=== PATIENT | female | born 1955 | race Caucasian/White ===

== ENCOUNTER 2021-09-23 07:27 | Day surgery (SDC) | payer BC, SELFPAY ==
[2021-09-23] VITALS (18 sets, daily range): BP systolic 118–153; BP diastolic 60–81; PULSE 64–95; RESP 16–18; TEMP 36–37.4; O2SAT 94–100; BMI 39.3
--- NOTE | 2021-09-23 10:36 | CRLHL7_ITS ---
For Patients: As a result of the Century Cures Act, medical imaging exams and procedure reports are released immediately into your electronic medical record. You may view this report before your referring provider. If you have questions, please contact your health care provider. INDICATION: Intraop LUQ lap port placement in left chest, eval left PTX TECHNIQUE: Chest 1 view COMPARISON: None FINDINGS: Left apical pneumothorax is present measuring 1.5 cm. Left basilar parenchymal densities are present. A small left pleural effusion is suspected. Right lung relatively clear. Cardiac silhouette enlarged. Mild degenerative changes. IMPRESSION: Small left apical pneumothorax. Left basilar atelectasis and small left pleural effusion. Discussed with Dr. Álvarez 11 a.m. 09/23/2021. Dictated by Narendra Lee MD @ 09/23/2021 11:01:25 AM (Electronically Signed)
--- NOTE | 2021-09-23 10:42 | W.ANESCHARGE ---
Anesthesia Charges Start Date/Time Anesthesia Start Date: 09/23/21 Anesthesia Start Time: 09:01 Stop Date/Time Anesthesia Stop Date: 09/23/21 Anesthesia Stop Time: 10:38 Summary Emergency: No
--- NOTE | 2021-09-23 10:45 | W.ANESCHARGE ---
Anesthesia Charges Start Date/Time Anesthesia Start Date: 09/23/21 Anesthesia Start Time: 09:01 Stop Date/Time Anesthesia Stop Date: 09/23/21 Anesthesia Stop Time: 10:38 Summary Emergency: No
--- NOTE | 2021-09-23 11:33 | PM.GSPRC ---
Operative Note Date of procedure: 09/23/21 Type of Procedure: 1. Laparoscopic cholecystectomy. Procedure Description: After discussing the risks and benefits of the procedure, the patient signed informed consent.? The operative site was marked and the patient was brought to the operating room and placed on the operating table in supine position.? Care was taken to pad the patient's pressure points.?? The patient was then intubated by anesthesia.?? The operative site was then prepped and draped in the usual sterile fashion.? A time-out was then performed. A 5-mm laparoscopy port was placed in the left upper quadrant guided by a 5-mm laparoscope placed into a translucent trochar.~ Passage through the layers of the abdominal wall was visualized with the laparoscope.~ A pneumoperitoneum was established. However, at this moment I noticed that my port was in the left chest where I was able to visualize the left lung superiorly and pericardial sac medially. This port was then withdrawn with only minimal air was insufflated in the chest. The 5 mm Visiport was then placed through the same left upper quadrant incision and advanced into the abdomen. The abdomen was entered and pneumoperitoneum was established. A 0-degree 5-mm laparoscope was advanced into the abdomen. The abdomen was briefly surveyed, and omental adhesions to the umbilicus were noted. A 10-mm port were placed supraumbilically superior to the adhesions and two more 5 mm ports were placed on the right under direct visualization by laparoscope. The camera was then changed to 10 mm 30-degree scope and placed into the abdomen through the 10 mm port. The left upper quadrant port entrance was examined. No expanding hematoma was noted. No liver injury was identified. Patient's vital signs were stable and no change in vital signs was noted throughout the procedure. I then directed my attention to the right upper quadrant. A moderately-sized fatty appearing abdominal wall mass was laying on the surface of the liver. This mass was covered by peritoneum and had an appearance of lipoma. The mass was retracted and the gallbladder was then grasped. The gallbladder fundus was grasped and retracted cephalad. The infundibulum was grasped and retracted laterally, exposing the peritoneum overlying the triangle of Calot. This was then divided and exposed in a blunt fashion and with hook cautery. No acute inflammation was noted surrounding the gallbladder. Common bile duct was not identified but care was taken not to injure it. The cystic duct was clearly identified and bluntly dissected circumferentially. Cystic artery was very small and was going into the gallbladder. This was divided with hook cautery. The cystic duct were clearly going into the gallbladder and was small in caliber. The cystic duct was then doubly ligated with surgical clips on the patient's side and singly clipped on the gallbladder side and divided. The cystic artery was then similarly ligated with clips and divided as well. The gallbladder was dissected from the liver bed in retrograde fashion using hookcautery. The gallbladder was placed into an Endo-Catch bag and removed through the supraumbilical incision. Surgical site was examined for bleeding. No bleeding was seen in the surgical field. A small piece of peritoneum overlying the right upper quadrant abdominal wall mass was excised with Metzenbaum scissors. Under peritoneum fatty tissue was noted. This was again grossly consistent with lipoma. This small biopsy excised was sent to pathology as right upper quadrant abdominal wall mass. The fascia of the supraumbilical incision was then closed with 0-0 vicryl using Anuel Moraima needle under direct visualization. The fascial edges were very thin on palpation. Patient did have a history of umbilical hernia repair, and my fascial incision was just superior to what felt to be possible mesh. Pneumoperitoneum was completely reduced after viewing removal of the trocars under direct vision. The skin was then closed with 4-0 monocryl and steristrips were applied. Instrument, sponge, and needle counts were correct at closure and at the conclusion of the case. The patient was transferred to PACU in stable condition. ? Findings: No acute inflammation surrounding the gallbladder. The cystic duct was very small in caliber. The left upper quadrant Visiport was accidentally placed into the left chest. Minimal insufflation of the left chest was done. Patient's vital signs were stable throughout the whole procedure. Anesthesia: GETA Surgeon: Latanya Álvarez MD Estimated blood loss (mL): 5 Condition: stable Disposition: floor (Due to Visiport placement into the left chest.)
[2021-09-23 11:47] LABS: Troponin I* < 0.01 ng/mL (0.01-0.04)
--- NOTE | 2021-09-23 12:01 | PM.GSHP ---
History of Present Illness History of Present Illness Date Seen: 09/23/21 Chief complaint: surgery Narrative: Juli Nguyen is a 66 year old female who underwent laparoscopic cholecystectomy today. Intraoperatively patient's left upper quadrant port was placed into the left chest inside of the abdomen. The port was then withdrawn and only minimal air was inflated insufflated into the chest. Patient did well intraoperatively with stable vital signs. Patient's surgery otherwise went well. Postoperatively, patient complained of diffuse chest pain. A chest x-ray was obtained that showed a tiny apical left pneumothorax. There was left-sided basilar atelectasis as well. An EKG was done that showed T wave inversions in V1 and V2 which were similar to patient's EKG in September of 2020. Patient's troponin was normal. With pain control patient's pain was starting to improve. Review of Systems Narrative: General: no fevers HENT: no problems swallowing CV: Painful to take a deep breath Resp: no cough GI: + abdominal pain, s/p lap matthew Skin: no new rashes Musculoskeletal: Patient has chronic back pain Neuro: no muscle weakness PFSH PFSH Medical History (Updated 09/23/21 @ 12:12 by Latanya Álvarez MD) Acute pain of both shoulders Adenomatous colon polyp De Quervain's disease (tenosynovitis) Displacement of lumbar intervertebral disc without myelopathy Essential (primary) hypertension Gastroesophageal reflux disease with esophagitis Iron deficiency anemia, unspecified Major depressive disorder, recurrent, unspecified Onychomycosis Pneumonia, unspecified organism Prediabetes Type 2 diabetes mellitus with unspecified complications Urgency of urination Vitamin D deficiency, unspecified Surgical History (Updated 09/23/21 @ 12:07 by Latanya Álvarez MD) H/O left knee surgery History of bladder suspension procedure History of umbilical hernia repair Social History (Updated 09/23/21 @ 12:08 by Latanya Álvarez MD) Narrative: Patient denies smoking. She works as a teacher. Meds Home Medications and Allergies Home Medications Medication Instructions Recorded Confirmed Type albuterol 90 mcg/actuation aerosol 90 mcg inhalation Q4H PRN 08/19/21 History inhaler atenolol 25 mg tablet 25 mg PO DAILY 08/19/21 History bupropion HCl 150 mg tablet,12 hr 150 mg PO QAM 08/19/21 History sustained-release (Wellbutrin SR) cholecalciferol (vitamin D3) 125 125 mcg PO DAILY 08/19/21 History mcg (5,000 unit) capsule ferrous sulfate 325 mg (65 mg 325 mg PO DAILY 08/19/21 History iron) tablet fluticasone propionate 50 2 spray intranasal DAILY PRN 08/19/21 History mcg/actuation nasal spray,suspension hydroxyzine HCl 25 mg tablet 25 mg PO Q6H PRN 08/19/21 History ipratropium 0.5 mg-albuterol 3 mg 3 ml inhalation QID PRN 08/19/21 History (2.5 mg base)/3 mL nebulization soln melatonin 3 mg capsule 3 mg PO HS PRN 08/19/21 History meloxicam 15 mg tablet 7.5 mg PO BID 08/19/21 History multivitamin 1 tab PO DAILY 08/19/21 History omeprazole 20 mg capsule,delayed 20 mg PO DAILY 08/19/21 History release trazodone 50 mg tablet 50 - 100 mg PO HS 08/19/21 History Allergies Allergy/AdvReac Type Severity Reaction Status Date / Time lisinopril Allergy Cough Verified 09/13/21 11:06 Sulfa (Sulfonamide Allergy Verified 09/13/21 11:06 Antibiotics) terbinafine Allergy Verified 09/13/21 11:06 Exam Narrative: Exam Narrative: General appearance: Alert, cooperative, and in no distress Pulmonary: Chest symmetric, breathing non labored Cardiovascular Heart: Regular rate and rhythm. Gastrointestinal Abdominal: soft, not distended, Steries over laparoscopic incisions. Skin: Normal skin color, texture, and turgor. No rashes or lesions. Psychiatric: Alert, cooperative, normal affect. Results Results Chest x-ray: image reviewed EKG: image reviewed Additional studies: Troponin normal Assessment and Plan Assessment and plan (1) Chest pain: Status: Acute (2) Pneumothorax, left: Status: Acute Plan 66-year-old female s/p laparoscopic cholecystectomy with intraoperative complication of this a port placement did into the left chest. Patient has postoperative chest pain. This is most likely musculoskeletal in nature due to injury to the diaphragmatic muscle. Her chest x-ray showed a tiny apical left pneumothorax with atelectasis. Her EKG is unchanged from a year ago. Her troponin is normal. We will observe the patient in the hospital. We will repeat her troponin in 4 hours and repeat her chest x-ray in 5 hours as long as there are no acute changes. Will keep the patient on clear liquid diet. I have asked the hospitalist to see this patient in consultation and review of EKG.
--- NOTE | 2021-09-23 14:29 | PM.IMCN1 ---
Date of Consult Consult date: 09/23/21 Requesting Physician: General Surgery Primary Care Provider: Randi Umana PA-C Consult Narrative Reason for consult: Left-sided chest pain Narrative: Juli Nguyen is a 66 year old female who presented to the hospital today for elective cholecystectomy with Dr. Álvarez. Unfortunately, her surgery had been delayed from earlier this month secondary to COVID infection. Postoperatively, she had left-sided chest pain that radiated into her back. Chest x-ray was obtained, exhibiting a small left apical pneumothorax and left-sided atelectasis. EKG also obtained without any acute abnormalities, and troponin was negative. Hospitalist team consulted given patient's chest pain. When I see take Juli, she is feeling better. Her pain is significantly improved, and she is sitting up in bed conversing. Her past medical history is significant for non insulin-dependent DM2. Her last A1c was 6.4 in July 2021. Last lipids April of 2021, with a total cholesterol of 214, LDL of 135, triglycerides 127. She has never been on a statin. ASCVD risk score is 13.2%. She is a former smoker and quit in 2004. No chronic lung disease, but was quite ill with RSV pneumonia last year. She very rarely drinks alcohol. Father at age 52 of acute coronary syndrome. Review of Systems Status of ROS: Reports: 10 or more systems reviewed and unremarkable except as noted in History and below PFSH [facility] Medical History (Updated 09/23/21 @ 15:32 by Diane Priest MD) Acute pain of both shoulders Adenomatous colon polyp De Quervain's disease (tenosynovitis) Displacement of lumbar intervertebral disc without myelopathy Essential (primary) hypertension Gastroesophageal reflux disease with esophagitis Insomnia Iron deficiency anemia, unspecified Major depressive disorder, recurrent, unspecified Onychomycosis Pneumonia, unspecified organism Prediabetes Type 2 diabetes mellitus with unspecified complications Urgency of urination Vitamin D deficiency, unspecified Surgical History (Updated 09/23/21 @ 12:07 by Latanya Álvarez MD) H/O left knee surgery History of bladder suspension procedure History of umbilical hernia repair Social History (Updated 09/23/21 @ 12:08 by Latanya Álvarez MD) Narrative: Patient denies smoking. She works as a teacher. Smoking Status: Never smoker How often do you have a drink containing alcohol: monthly or less Alcohol type: wine How often do you have six or more drinks on one occasion: Never AUDIT-C Alcohol total score: 1 Caffeine: Yes (coffee) service: No Meds Home Medications and Allergies Home Medications Medication Instructions Recorded Confirmed Type atenolol 25 mg tablet 25 mg PO DAILY 08/19/21 09/23/21 History bupropion HCl 150 mg tablet,12 hr 150 mg PO QAM 08/19/21 09/23/21 History sustained-release (Wellbutrin SR) cholecalciferol (vitamin D3) 125 125 mcg PO DAILY 08/19/21 09/23/21 History mcg (5,000 unit) capsule ferrous sulfate 325 mg (65 mg 325 mg PO DAILY 08/19/21 09/23/21 History iron) tablet fluticasone propionate 50 2 spray intranasal DAILY PRN 08/19/21 09/23/21 History mcg/actuation nasal spray,suspension hydroxyzine HCl 25 mg tablet 25 mg PO Q6H PRN 08/19/21 09/23/21 History melatonin 3 mg capsule 3 mg PO HS PRN 08/19/21 09/23/21 History meloxicam 15 mg tablet 7.5 mg PO BID 08/19/21 09/23/21 History multivitamin 1 tab PO DAILY 08/19/21 09/23/21 History omeprazole 20 mg capsule,delayed 20 mg PO DAILY 08/19/21 09/23/21 History release trazodone 50 mg tablet 50 - 100 mg PO HS 08/19/21 09/23/21 History Home Medication Comments: Confirmed with patient. She has been holding her meloxicam for surgery, plans to restart this tomorrow. Allergies Allergy/AdvReac Type Severity Reaction Status Date / Time lisinopril Allergy Cough Verified 09/13/21 11:06 Sulfa (Sulfonamide Allergy Verified 09/13/21 11:06 Antibiotics) terbinafine Allergy Verified 09/13/21 11:06 Exam Narrative: Exam Narrative: GEN: Alert and oriented, answering questions appropriately and speaking in full sentences HEENT: Normal external ears, EOMIs bilaterally. Full range of motion of neck CV: RRR, No concerning murmurs, rubs, or gallops. No carotid bruits R: No tachypnea. LCTA bilaterally without concerning wheezing, rales, or rhonchi Ext: wwp, no concerning edema Skin: No concerning skin lesions or rashes on exposed skin Neuro: Nonfocal, no resting tremor Psych: Appropriate Const: Vital Signs, click to edit/add: Vital Signs - 24 hr 09/23/21 11:50 09/23/21 13:24 09/23/21 12:00 Temperature 96.8 F L 96.8 F L 96.8 F L Pulse Rate 74 Pulse Rate [Left P ulse Oximeter] 74 80 Respiratory Rate 16 16 18 Blood Pressure [Ri ght Arm] 144/81 H 144/81 H 153/70 H Pulse Oximetry 100 96 Oxygen Delivery Me thod Room Air Room Air Room Air 09/23/21 12:15 09/23/21 12:30 09/23/21 12:45 Temperature 97.7 F 98 F 98 F Pulse Rate Pulse Rate [Left P ulse Oximeter] 64 79 81 Respiratory Rate 16 16 16 Blood Pressure [Ri ght Arm] 146/69 H 142/60 H 118/66 Pulse Oximetry 95 94 95 Oxygen Delivery Me thod Room Air Room Air Room Air 09/23/21 13:00 Temperature 98.2 F Pulse Rate Pulse Rate [Left P ulse Oximeter] 84 Respiratory Rate 16 Blood Pressure [Ri ght Arm] 121/64 Pulse Oximetry 95 Oxygen Delivery Me thod Room Air Labs Labs: Cardiac Enzymes 09/23/21 Range/Units 11:11 Troponin I < 0.01 L (0.01-0.04) ng/mL ECG Attestation: I personally reviewed and interpreted this ECG as follows: Prior ECG tracings: available for review Assessment and Plan Assessment and plan (1) Pneumothorax, left: Status: Acute (2) Chest pain: Status: Acute (3) Non-insulin dependent diabetes mellitus: Status: Acute (4) Essential (primary) hypertension: Status: Acute (5) Insomnia: Problem comment: Continue home medications of melatonin and trazodone Status: Acute Plan At this time, chest pain consistent with a musculoskeletal process from diaphragmatic injury, in addition to left-sided pneumothorax, rather than a cardiac process. Will follow serial chest x-rays and troponins, anticipate that patient will be able to go home tomorrow with outpatient PCP follow-up. Continue home medications and Accu-Cheks during stay.
[2021-09-23] MEDS: ACETAMINOPHEN 325 MG TABLET 650 MG PO ×2 (15:39→21:11)
--- NOTE | 2021-09-23 16:00 | CRLHL7_ITS ---
For Patients: As a result of the Century Cures Act, medical imaging exams and procedure reports are released immediately into your electronic medical record. You may view this report before your referring provider. If you have questions, please contact your health care provider. INDICATION: Left apical pneumothorax. TECHNIQUE: Chest 1 views. COMPARISON: None. FINDINGS/impression: Cardiovascular and mediastinum: Heart size and vasculature are normal in caliber and appearance. Lungs and pleural spaces: Previously visualized left apical pneumothorax is no longer visualized on the current radiograph. However, portable chest radiograph has limited sensitivity. If there is persistent concern for pneumothorax, consider repeat evaluation with PA and lateral chest radiographs. Improved left basilar atelectasis. Bones and soft tissues: No significant findings. Dictated by Pauline Mayorga MD @ 09/23/2021 4:56:49 PM (Electronically Signed)
--- NOTE | 2021-09-23 17:50 | PC.NURSE ---
Shift Summary: Patient arrived to floor 1150. Alert and oriented. at bedside. Rates pain at worst 5/10 in chest, pain in abdomen tolerable. Refused norco, wants to try tylenol first. Up independently in room. Dressing over umbilicus reenforced, dry and intact. Patient voiding, tolerating regular diet. Vitals stable and WNL.
--- NOTE | 2021-09-23 18:02 | PM.GSPN ---
Subjective Subjective Date Seen: 09/23/21 Interval history: Patient is doing better. She continues to have left chest pain with taking deep breaths. Her EKG was repeated and remains normal. Her repeat chest x-ray shows resolution of left pneumothorax and her left atelectasis has improved. Her second troponin is pending. Exam Narrative: Exam Narrative: General: Patient is appearing well. Respiratory: Breathing is nonlabored. Const: Vital Signs, click to edit/add: Vital Signs - 24 hr 09/23/21 11:50 09/23/21 13:24 09/23/21 12:00 Temperature 96.8 F L 96.8 F L 96.8 F L Pulse Rate 74 Pulse Rate [Left P ulse Oximeter] 74 80 Respiratory Rate 16 16 18 Blood Pressure [Ri ght Arm] 144/81 H 144/81 H 153/70 H Pulse Oximetry 100 96 Oxygen Delivery Me thod Room Air Room Air Room Air 09/23/21 12:15 09/23/21 12:30 09/23/21 12:45 Temperature 97.7 F 98 F 98 F Pulse Rate Pulse Rate [Left P ulse Oximeter] 64 79 81 Respiratory Rate 16 16 16 Blood Pressure [Ri ght Arm] 146/69 H 142/60 H 118/66 Pulse Oximetry 95 94 95 Oxygen Delivery Me thod Room Air Room Air Room Air 09/23/21 13:00 09/23/21 13:30 09/23/21 14:35 Temperature 98.2 F 98.1 F 97.8 F Pulse Rate Pulse Rate [Left P ulse Oximeter] 84 87 95 Respiratory Rate 16 16 18 Blood Pressure [Ri ght Arm] 121/64 144/64 H 145/76 H Pulse Oximetry 95 96 96 Oxygen Delivery Me thod Room Air Room Air Room Air 09/23/21 16:08 09/23/21 15:35 09/23/21 16:20 Temperature 99 F 99 F Pulse Rate 84 Pulse Rate [Left P ulse Oximeter] 86 86 Respiratory Rate 18 18 Blood Pressure [Ri ght Arm] 139/72 139/72 Pulse Oximetry 97 97 Oxygen Delivery Me thod Room Air Room Air Progress Note: A&P Assessment and plan (1) Pneumothorax, left: Status: Acute Assessment and Plan: Patient is doing well. Will continue observing her. If her troponin is normal and she continues to do well, most likely discharge home tomorrow. (2) Chest pain: Status: Acute (3) Non-insulin dependent diabetes mellitus: Status: Acute (4) Essential (primary) hypertension: Status: Acute (5) Insomnia: Problem details: Continue home medications of melatonin and trazodone Status: Acute
[2021-09-23 18:09] LABS: Troponin I* < 0.01 ng/mL (0.01-0.04)
[2021-09-23] MEDS: TRAZODONE HCL 50 MG TABLET PO (21:11)
[2021-09-23] MEDS: hydrOXYzine pamoate 25 MG CAPSULE PO (21:11)
[2021-09-24] VITALS: BP 130/64; PULSE 82; RESP 18; TEMP 37.4; O2SAT 97
[2021-09-24 04:00] VITALS: BP 139/68; PULSE 68; RESP 18; TEMP 36.8; O2SAT 95
--- NOTE | 2021-09-24 05:42 | PC.NURSE ---
Alert and orientedx4. Lungs clear bilaterally. Vitals stable on room air.Continues to have abd pain; taking Tylenol for pain management. sinus rhythm on tele. Bedtime Blood glucose 207; no insulin coverage. Laparascopic site CDI. patient ambulated in the room with standby assist. No concerns overnight.
[2021-09-24 06:58] LABS: Chloride* 103 mmol/L (96-114); Potassium* 4.3 mmol/L (3.6-5.1); Sodium* 137 mmol/L (135-149)
--- NOTE | 2021-09-24 07:00 | CRLHL7_ITS ---
For Patients: As a result of the Century Cures Act, medical imaging exams and procedure reports are released immediately into your electronic medical record. You may view this report before your referring provider. If you have questions, please contact your health care provider. INDICATION: Follow-up pneumothorax. TECHNIQUE: Chest 1 view. COMPARISON: Chest radiograph 09/23/2021. FINDINGS: No focal consolidation, pleural effusion, or pneumothorax. Mild cardiomegaly. Normal pulmonary vascularity. The bones are unremarkable. IMPRESSION: 1. No pneumothorax identified. 2. Mild cardiomegaly. Dictated by Jannette Huff MD @ 09/24/2021 8:25:49 AM (Electronically Signed)
[2021-09-24 07:01] LABS: Carbon Dioxide* 30 mmol/L (20-32); Creatinine* 0.6 mg/dL (0.5-1.5); Est. Creatinine Clearance* 47.01; Estimated Glomerular Filt Rate 100 ml/min
[2021-09-24 07:02] LABS: Blood Urea Nitrogen* 15 mg/dL (7-30); Calcium* 9.1 mg/dL (8.4-10.6); Glucose* 162 mg/dL (60-115)
[2021-09-24 07:14] LABS: Troponin I* < 0.01 ng/mL (0.01-0.04)
[2021-09-24] MEDS: OMEPRAZOLE 20 MG CAPSULE DR PO (07:20)
[2021-09-24 07:30] VITALS: PULSE 79
--- NOTE | 2021-09-24 07:41 | PM.DS1 ---
DS: Providers Provider Date Seen: 09/24/21 Primary care physician: Randi Umana PA-C Attending Physician on discharge: Latanya Álvarez MD DS: Diagnosis Discharge Diagnosis (1) Pneumothorax, left: Status: Acute Problem details: Resolved (2) Chest pain: Status: Acute Problem details: Improved (3) Non-insulin dependent diabetes mellitus: Status: Acute (4) Essential (primary) hypertension: Status: Acute (5) Insomnia: Status: Acute Problem details: Continue home medications of melatonin and trazodone DS: Summary Hospital Course Hospital Course: Patient was admitted to the hospital after laparoscopic cholecystectomy due to 1 of her laparoscopic ports being placed in the chest instead of the abdomen. Patient had a small apical pneumothorax on postoperative chest x-ray. That improved on the follow-up chest x-ray 5 hours after the initial chest x-ray. Patient's chest pain has been evaluated by 2 EKGs which were unchanged from her previous EKG 1 year ago. Patient had 2- troponins. Patient's chest pain was improving the day after the procedure. Patient tolerated regular diet and was urinating without any difficulties. Time Spent with Patient Time attestation: Total time spent providing and/or coordinating discharge services: Exam Narrative: Exam Narrative: Abdomen: Soft, not distended, not tender to palpation, surgical incisions are healing well with no erythema. Const: Vital Signs, click to edit/add: Vital Signs - 24 hr 09/23/21 11:50 09/23/21 13:24 09/23/21 12:00 Temperature 96.8 F L 96.8 F L 96.8 F L Pulse Rate 74 Pulse Rate [Left P ulse Oximeter] 74 80 Respiratory Rate 16 16 18 Blood Pressure [Ri ght Arm] 144/81 H 144/81 H 153/70 H Pulse Oximetry 100 96 Oxygen Delivery Me thod Room Air Room Air Room Air 09/23/21 12:15 09/23/21 12:30 09/23/21 12:45 Temperature 97.7 F 98 F 98 F Pulse Rate Pulse Rate [Left P ulse Oximeter] 64 79 81 Respiratory Rate 16 16 16 Blood Pressure [Ri ght Arm] 146/69 H 142/60 H 118/66 Pulse Oximetry 95 94 95 Oxygen Delivery Me thod Room Air Room Air Room Air 09/23/21 13:00 09/23/21 13:30 08/01/22 14:35 Temperature 98.2 F 98.1 F 97.8 F Pulse Rate Pulse Rate [Left P ulse Oximeter] 84 87 95 Respiratory Rate 16 16 18 Blood Pressure [Ri ght Arm] 121/64 144/64 H 145/76 H Pulse Oximetry 95 96 96 Oxygen Delivery Me thod Room Air Room Air Room Air 09/23/21 16:08 09/23/21 15:35 09/23/21 16:20 Temperature 99 F 99 F Pulse Rate 84 Pulse Rate [Left P ulse Oximeter] 86 86 Respiratory Rate 18 18 Blood Pressure [Ri ght Arm] 139/72 139/72 Pulse Oximetry 97 97 Oxygen Delivery Me thod Room Air Room Air 09/23/21 20:00 09/23/21 22:31 09/23/21 22:33 Temperature 99.3 F Pulse Rate 84 Pulse Rate [Left P ulse Oximeter] 82 82 Respiratory Rate 18 18 Blood Pressure [Ri ght Arm] 134/66 Pulse Oximetry 97 Oxygen Delivery Wy thod Room Air 09/23/21 22:42 09/24/21 00:00 09/24/21 04:00 Temperature 99.4 F 99.4 F 98.2 F Pulse Rate Pulse Rate [Left P ulse Oximeter] 82 68 Respiratory Rate 18 18 Blood Pressure [Ri ght Arm] 130/64 139/68 Pulse Oximetry 97 95 Oxygen Delivery Wy thod Room Air Room Air 09/23/21 16:35 09/24/21 07:30 Temperature 99 F Pulse Rate 79 Pulse Rate [Left P ulse Oximeter] 82 Respiratory Rate 16 Blood Pressure [Ri ght Arm] 129/63 Pulse Oximetry Oxygen Delivery Me thod Room Air DS: Data Data Completed and Pending Labs on day of discharge: Labs from last 24 hours 09/24/21 09/23/21 09/23/21 05:52 17:28 11:11 Sodium 137 Potassium 4.3 Chloride 103 Carbon Dioxide 30 BUN 15 Creatinine 0.6 Estimated Creat Clear 47.01 Estimated GFR 100 Glucose 162 H Calcium 9.1 Troponin I < 0.01 L < 0.01 L < 0.01 L Surg PTH (Off-Site) 09/23/21 10:16 Sodium Potassium Chloride Carbon Dioxide BUN Creatinine Estimated Creat Clear Estimated GFR Glucose Calcium Troponin I Surg PTH (Off-Site) Pending Discharge Plan Discharge Disposition: Home, Self-Care Discharging Surgeon: Latanya Álvarez Follow-Up Appointment: 2 weeks [facility] Prescriptions: New hydrocodone-acetaminophen 5-325 mg tablet 1 tab PO Q6H PRN (Reason: pain) Qty: 25 0RF Continued atenolol 25 mg tablet 25 mg PO DAILY bupropion HCl [Wellbutrin SR] 150 mg tablet sustained-release 12 hr 150 mg PO QAM cholecalciferol (vitamin D3) 125 mcg (5,000 unit) capsule 125 mcg PO DAILY ferrous sulfate 325 mg (65 mg iron) tablet 325 mg PO DAILY fluticasone propionate 50 mcg/actuation spray,suspension 2 spray intranasal DAILY PRN Rx Instructions: administer into each nostril hydroxyzine HCl 25 mg tablet 25 mg PO Q6H PRN melatonin 3 mg capsule 3 mg PO HS PRN meloxicam 15 mg tablet 7.5 mg PO BID multivitamin Tablet 1 tab PO DAILY omeprazole 20 mg capsule,delayed release(DR/EC) 20 mg PO DAILY trazodone 50 mg tablet 50 - 100 mg PO HS Activity Level: No strenuous activity Discharge Diet: Regular Patient Instructions: Hydrocodone/Acetaminophen (By mouth) (Vicodin, [place], Lortab), Laparoscopic Cholecystectomy (DC) Follow-up: Latanya Álvarez MD [Staff Physician] - Discharge Orders: Discharge Order (Routine); Ordered 09/24/21 Ordered By: Latanya Álvarez
[2021-09-24 08:11] VITALS: BP 147/70; PULSE 68; RESP 16; TEMP 37; O2SAT 94
[2021-09-24] MEDS: atenoloL 25 MG TABLET PO (08:26)
[2021-09-24] MEDS: buPROPion XL 150 MG TABLET PO (08:27)
[2021-09-24] MEDS: ACETAMINOPHEN 325 MG TABLET 650 MG PO (08:29)
--- NOTE | 2021-09-24 09:55 | PC.NURSE ---
Discharge: Patient pleasant and cooperative. Up independently, tolerating regular diet, able to perform ADLs. Vitals stable and WNL. Pain controlled wiht PRN tylenol and ice over abdomen. IV removed with catheter intact. o2 sats >90% on RA. Lap sites dry with steri strips intact. Patient discharged from floor @ 0945 via wheelchair, discharged home, picked up from main entrance.
--- NOTE | 2021-09-24 11:11 | PM.IMPN1 ---
Progress Note: A&P Assessment and plan (1) Pneumothorax, left: Problem details: Resolved Status: Acute Assessment and Plan: no further intervention needed (2) Chest pain: Problem details: Improved Status: Acute Assessment and Plan: resolved with resolution of pneumothorax (3) Non-insulin dependent diabetes mellitus: Status: Acute Assessment and Plan: resume home management (4) History of cholecystectomy: Status: Acute Assessment and Plan: doing well Plan discharged to home per surgeon. Outpatient followup per surgery Subjective Date Seen: 09/24/21 Interval history: 66-year-old female seen in followup of laparoscopic cholecystectomy complicated by left pneumothorax. Patient reports feeling much better today. The left shoulder pain that she had yesterday has resolved. She still is having some expected abdominal discomfort post cholecystectomy. She reports no breathing troubles. She has been able to eat today. She has no other concerns. Exam Narrative: Exam Narrative: She is alert appears in no distress. She gives her own history. Respirations are clear to auscultation. Symmetric breath sounds. Cardiovascular: S1, S2, regular rate and rhythm. No murmur gallop or rub. Abdomen: Laparoscopic incisions are without erythema or drainage. She has mild diffuse tenderness in the upper abdomen consistent with her cholecystectomy status. No edema. Good peripheral pulses. Const: Vital Signs, click to edit/add: Vital Signs - 24 hr 09/23/21 11:50 09/23/21 13:24 09/23/21 12:00 Temperature 96.8 F L 96.8 F L 96.8 F L Pulse Rate 74 Pulse Rate [Left P ulse Oximeter] 74 80 Respiratory Rate 16 16 18 Blood Pressure [Ri ght Arm] 144/81 H 144/81 H 153/70 H Pulse Oximetry 100 96 Oxygen Delivery Me thod Room Air Room Air Room Air 09/23/21 12:15 09/23/21 12:30 09/23/21 12:45 Temperature 97.7 F 98 F 98 F Pulse Rate Pulse Rate [Left P ulse Oximeter] 64 79 81 Respiratory Rate 16 16 16 Blood Pressure [Ri ght Arm] 146/69 H 142/60 H 118/66 Pulse Oximetry 95 94 95 Oxygen Delivery Me thod Room Air Room Air Room Air 09/23/21 13:00 09/23/21 13:30 09/23/21 14:35 Temperature 98.2 F 98.1 F 97.8 F Pulse Rate Pulse Rate [Left P ulse Oximeter] 84 87 95 Respiratory Rate 16 16 18 Blood Pressure [Ri ght Arm] 121/64 144/64 H 145/76 H Pulse Oximetry 95 96 96 Oxygen Delivery Me thod Room Air Room Air Room Air 09/23/21 16:08 09/23/21 15:35 09/23/21 16:20 Temperature 99 F 99 F Pulse Rate 84 Pulse Rate [Left P ulse Oximeter] 86 86 Respiratory Rate 18 18 Blood Pressure [Ri ght Arm] 139/72 139/72 Pulse Oximetry 97 97 Oxygen Delivery Me thod Room Air Room Air 09/23/21 20:00 09/23/21 22:31 09/23/21 22:33 Temperature 99.3 F Pulse Rate 84 Pulse Rate [Left P ulse Oximeter] 82 82 Respiratory Rate 18 18 Blood Pressure [Ri ght Arm] 134/66 Pulse Oximetry 97 Oxygen Delivery Me thod Room Air 09/23/21 22:42 09/24/21 00:00 09/24/21 04:00 Temperature 99.4 F 99.4 F 98.2 F Pulse Rate Pulse Rate [Left P ulse Oximeter] 82 68 Respiratory Rate 18 18 Blood Pressure [Ri ght Arm] 130/64 139/68 Pulse Oximetry 97 95 Oxygen Delivery Me thod Room Air Room Air 09/23/21 16:35 09/24/21 07:30 09/24/21 08:11 Temperature 99 F 98.6 F Pulse Rate 79 Pulse Rate [Left P ulse Oximeter] 82 68 Respiratory Rate 16 16 Blood Pressure [Ri ght Arm] 129/63 147/70 H Pulse Oximetry 94 Oxygen Delivery Me thod Room Air Room Air Documenting provider has reviewed patient's vital signs: yes Labs Labs: Laboratory Results - last 24 hr 09/23/21 09/23/21 09/24/21 11:11 17:28 05:52 Sodium 137 Potassium 4.3 Chloride 103 Carbon Dioxide 30 BUN 15 Creatinine 0.6 Estimated Creat Clear 47.01 Estimated GFR 100 Glucose 162 H Calcium 9.1 Troponin I < 0.01 L < 0.01 L < 0.01 L
--- NOTE | 2021-10-03 16:19 | SUR.PHASEI ---
Phase 1 times completed by this nurse based on documents scanned into chart. Expanse downtime. Needed to close document for billing.
== END 2021-09-24 09:45 | disposition home or self-care (01) ==
LOC: OR 08:59 → MEDSURG 12:02
PROVIDERS: Family Medicine; PCP Physician Assistant Medical; Visit Provider Surgery
PROC: 0FT44ZZ Resection of Gallbladder, Percutaneous Endoscopic Approach (ICD-10-PCS; CPT 47562; principal; 2021-09-23 09:00)
DX: K80.10 Calculus of gallbladder with chronic cholecystitis without obstruction (principal); D17.1 Benign lipomatous neoplasm of skin and subcutaneous tissue of trunk; J95.811 Postprocedural pneumothorax; J95.89 Other postprocedural complications and disorders of respiratory system, not elsewhere classified; J98.11 Atelectasis; R07.9 Chest pain, unspecified; E11.9 Type 2 diabetes mellitus without complications; I10 Essential (primary) hypertension; G47.00 Insomnia, unspecified
CPT/HCPCS: 47562; 22902; 00790; 00860; 36415; 71045; 80048; 82947; 84484; 88304; 88305; 93005; G0378; A9270; J1100; J2250; J2405; J2704; J2710; J3010

== ENCOUNTER 2021-09-26 16:30 | Inpatient (IN) | payer BC, SELFPAY ==
[2021-09-26] VITALS (12 sets, daily range): BP systolic 136–151; BP diastolic 66–92; PULSE 85–97; RESP 16–33; TEMP 36.9–38.9; O2SAT 89–97; BMI 39.9; BMI 44.6
[2021-09-26 17:32] LABS: Appearance Urine Clear (Clear); Bilirubin Urine Negative (Negative); Blood Urine Negative (Negative); Color Urine Yellow (Yellow); Glucose Urine Negative (Negative); Ketones Urine Negative (Negative); Leukocyte Esterase Urine Negative (Negative); Nitrite Urine Negative (Negative); Protein Urine Negative (Negative); Urobilinogen Urine 0.2 (0.2-1.0); pH Urine 8.5 (5.0-8.5)
[2021-09-26 18:00] LABS: HCO3 VBG 28 mmol/L (21-28); PCO2 VBG 43 mmHG (40-50); PO2 VBG 32.1 mmHG (25-47); pH VBG 7.428 (7.32-7.43)
[2021-09-26 18:08] LABS: Basophils Absolute Auto 0.03 K/uL (0.00-0.30); Basophils Percent Auto 0.4 % (0.0-3.0); Eosinophils Absolute Auto 0.12 K/uL (0.00-0.50); Eosinophils Percent Auto 1.6 % (0.0-7.0); Hematocrit 40.2 % (33.0-51.0); Hemoglobin* 13.4 gm/dL (12.0-16.0); Immature Granulocytes Abs Auto 0.06 K/uL (0.00-0.30); Lactate* 1.4 mmol/L (0.5-1.9); Lymphocytes Percent Auto 6.7 % (20-44); Mean Corpuscular HGB Conc 33 gm/dL (32-36); Mean Corpuscular Hemoglobin 30 pg (26-34); Mean Corpuscular Volume 90 fL (80-100); Monocytes Percent Auto 7.1 % (0.0-11.0); Neutrophils Percent Auto 83.4 % (42.0-72.0); Platelet Count* 187 K/uL (140-440); RDW Coefficient of Variation % 12.8 % (11.5-15.5); Red Blood Count 4.49 m/uL (4.00-5.20)
[2021-09-26 18:09] LABS: Slide Review Reflex No
[2021-09-26 18:20] LABS: Albumin* 4.2 g/dL (3.3-5.0); Chloride* 100 mmol/L (96-114)
[2021-09-26 18:21] LABS: Potassium* 3.9 mmol/L (3.6-5.1); Sodium* 133 mmol/L (135-149)
[2021-09-26 18:23] LABS: Creatinine* 0.7 mg/dL (0.5-1.5); Est. Creatinine Clearance* 47.01; Estimated Glomerular Filt Rate 97 ml/min
[2021-09-26 18:24] LABS: Alanine Aminotransferase* 60 U/L (4-35); Alkaline Phosphatase* 134 U/L (40-150); Aspartate Amino Transferase* 56 U/L (12-35); Bilirubin Direct* 0.2 mg/dL (0.0-0.5); Bilirubin Total* 0.5 mg/dL (0.1-1.5); Blood Urea Nitrogen* 15 mg/dL (7-30); Calcium* 8.9 mg/dL (8.4-10.6); Carbon Dioxide* 27 mmol/L (20-32); Glucose* 153 mg/dL (60-115); Lipase* 44 U/L (23-300); Total Protein* 7.1 g/dL (6.0-8.3)
[2021-09-26 18:27] LABS: C Reactive Protein* 2.4 mg/dL (0.5-1.0)
[2021-09-26 18:39] LABS: Troponin I* < 0.01 ng/mL (0.01-0.04)
--- NOTE | 2021-09-26 18:50 | CRLHL7_ITS ---
For Patients: As a result of the Century Cures Act, medical imaging exams and procedure reports are released immediately into your electronic medical record. You may view this report before your referring provider. If you have questions, please contact your health care provider. INDICATION: post op cholecystectomy (09/23/2021), fever TECHNIQUE: CT chest PE, abdomen and pelvis acquired with 95cc Omnipaque 350 IV contrast. COMPARISON: None. FINDINGS: CHEST: Cardiovascular structures: Heart size is normal. Thoracic aorta and main pulmonary artery are normal in caliber. No sign of pulmonary embolism. Mediastinum and faith: Mildly prominent subcentimeter mediastinal lymph nodes which are nonspecific and may be reactive. Lungs and pleura: Lungs and pleural spaces are clear. No suspicious nodules, infiltrates, or effusions. Chest wall and axilla: No mass or adenopathy. Bones: No suspicious bone lesions. Unremarkable for age. ABDOMEN AND PELVIS: Liver: Unremarkable. Gallbladder and bile ducts: The gallbladder surgically absent. Small amount of stranding extending adjacent to the gallbladder fossa down to the right pericolic gutter which may be postoperative. No organizing fluid collection. The gallbladder surgically absent. Pancreas: Moderate parenchymal atrophy. Spleen: Unremarkable. Adrenal glands: Unremarkable. Kidneys: Subcentimeter bilateral hypoattenuating lesions too small to characterize. Kidneys are symmetric. No hydronephrosis. Small amount of air within the bladder. GI tract: No evidence of bowel obstruction. Colonic diverticulosis without inflammation. Unremarkable appendix.. Vascular structures: Abdominal aorta is of normal caliber with mild atherosclerosis.. Lymph nodes: Unremarkable. Miscellaneous: Encapsulated fatty mass along the right abdominal sidewall adjacent to the liver with associated distortion of the right hepatic parenchyma. This measures 17 x 7.2 x 2.2 cm. There are few thin septations. Findings favors lipomatosis or retroperitoneal lipoma. No free air or significant free fluid. Fat containing midline ventral hernia measuring 2.4 cm. There is adjacent subcutaneous stranding and foci of air which may relate to postoperative changes or infection. Pelvic Organs: Unremarkable. Bones: No suspicious bone lesions. Mild degenerative changes of the spine. IMPRESSION: Postop changes from recent gallbladder resection with mild stranding within the gallbladder fossa extending into the right lower abdomen, which is likely postoperative. No organizing fluid collection to suggest abscess. Fat containing midline ventral hernia measuring 2.4 cm. There is adjacent subcutaneous stranding and foci of air which may relate to postoperative changes or infection. Encapsulated fatty mass along the right abdominal sidewall adjacent to the liver with associated distortion of the right hepatic parenchyma. This measures 17 x 7.2 x 2.2 cm. There are few thin septations. Finding favors lipomatosis or retroperitoneal lipoma. No acute cardiopulmonary process. No pulmonary embolus. Please note that all CT scans at this facility use dose modulation, iterative reconstruction, and/or weight-based dosing when appropriate to reduce radiation dose to as low as reasonably achievable. Dictated by Gary Evangelista MD @ 09/26/2021 8:40:56 PM (Electronically Signed)
--- NOTE | 2021-09-26 19:14 | ED.GENADULT ---
HPI - General Adult General Date Seen: 09/26/21 Chief complaint: Shortness of Breath/Dyspnea Stated complaint: Post op fever Time Seen by Provider: 09/26/21 16:46 Source: patient Mode of arrival: ambulatory Limitations: no limitations History of Present Illness HPI narrative: 66-year-old female presents to the emergency room with left shoulder pain and fever. She is postop day 3 from a laparoscopic cholecystectomy. Operative complications include a small left pneumothorax which caused her left chest and shoulder pain. This was small and resolved overnight without any intervention. She was discharged to home the next day doing well. Yesterday she was seen in clinic for urologic/incontinence/recurrent infection problems. She had a cystoscopy done at that time. She is having recurrence of her left chest and shoulder pain. She also is reporting a fever of 103?. She has some shortness of breath with this. She is not having any increased abdominal pain. She has been able to eat and drink. Her bowels are working normally. Related Data Home Medications Medication Instructions Recorded Confirmed atenolol 25 mg tablet 25 mg PO DAILY 08/19/21 09/26/21 bupropion HCl 150 mg tablet,12 hr 150 mg PO QAM 08/19/21 09/26/21 sustained-release (Wellbutrin SR) cholecalciferol (vitamin D3) 125 125 mcg PO DAILY 08/19/21 09/26/21 mcg (5,000 unit) capsule ferrous sulfate 325 mg (65 mg 325 mg PO DAILY 08/19/21 09/26/21 iron) tablet fluticasone propionate 50 2 spray intranasal DAILY PRN 08/19/21 09/26/21 mcg/actuation nasal spray,suspension hydroxyzine HCl 25 mg tablet 25 mg PO Q6H PRN 08/19/21 09/26/21 melatonin 3 mg capsule 3 mg PO HS PRN 08/19/21 09/26/21 meloxicam 15 mg tablet 7.5 mg PO BID 08/19/21 09/26/21 multivitamin 1 tab PO DAILY 08/19/21 09/26/21 omeprazole 20 mg capsule,delayed 20 mg PO DAILY 08/19/21 09/26/21 release trazodone 50 mg tablet 50 - 100 mg PO HS 08/19/21 09/26/21 Previous Rx's Medication Instructions Recorded hydrocodone 5 mg-acetaminophen 325 1 tab PO Q6H PRN pain #25 tabs 09/23/21 mg tablet Allergies Allergy/AdvReac Type Severity Reaction Status Date / Time lisinopril Allergy Cough Verified 09/26/21 16:54 Sulfa (Sulfonamide Allergy Verified 09/26/21 16:54 Antibiotics) terbinafine Allergy Verified 09/26/21 16:54 Review of Systems Narrative: Review of systems is negative except as noted above PFSH PFSH Medical History (Updated 09/28/21 @ 09:14 by Pedro Matthew MD) Acute pain of both shoulders Adenomatous colon polyp De Quervain's disease (tenosynovitis) Displacement of lumbar intervertebral disc without myelopathy Essential (primary) hypertension Gastroesophageal reflux disease with esophagitis Insomnia Iron deficiency anemia, unspecified Major depressive disorder, recurrent, unspecified Onychomycosis Pneumonia, unspecified organism Prediabetes Type 2 diabetes mellitus with unspecified complications Urgency of urination Vitamin D deficiency, unspecified Surgical History (Updated 09/28/21 @ 09:12 by Pedro Matthew MD) H/O left knee surgery History of bladder suspension procedure History of cholecystectomy History of umbilical hernia repair Social History (Updated 09/23/21 @ 12:08 by Latanya Álvarez MD) Narrative: Patient denies smoking. She works as a teacher. Highest level of school completed/degree received: Master's degree Smoking Status: Former smoker What tobacco products do you use: cigarettes Years smoked: 10 Smoking quit date/years: >15 years ago Do you use any of these nicotine containing products: None How often do you have a drink containing alcohol: monthly or less Alcohol type: wine How often do you have six or more drinks on one occasion: Never AUDIT-C Alcohol total score: 1 Non-prescribed substance use: denies use Caffeine: Yes (coffee) service: No Exam Narrative: Exam Narrative: She is alert and appears in no distress. She gives her own history. Oropharynx is normal. Neck is supple out mass or adenopathy. Respirations are clear to auscultation. No definite asymmetry of breath sounds. No rales or crackles. Cardiovascular: S1, S2, regular rate and rhythm. Abdomen: Bowel sounds active. Abdomen is soft she has mild tenderness consistent with her postop laparoscopic cholecystectomy day 3. Three of the for laparoscopic incisions are without significant erythema or drainage the 4th 1, at the umbilicus has mild surrounding erythema and no drainage. Is not particularly tender. No peritonitis. Extremities without significant edema. Good perfusion in all 4 extremities. Const: Vital Signs, click to edit/add: Vital Signs - 24 hr 09/26/21 16:56 09/26/21 17:00 09/26/21 18:00 Temperature 99.3 F Pulse Rate [Apical ] 85 86 85 Respiratory Rate 28 H 24 24 Blood Pressure [Le ft Forearm] 148/74 H 140/70 H 147/72 H Pulse Oximetry 95 95 95 Oxygen Delivery Me thod Room Air Room Air Room Air 09/26/21 18:30 09/26/21 19:00 Temperature 102.0 F H Pulse Rate [Apical ] 87 90 Respiratory Rate Blood Pressure [Le ft Forearm] 151/66 H 138/71 Pulse Oximetry 95 95 Oxygen Delivery Me thod Room Air Room Air Course Course Hospital Course: 66-year-old female presented with fever 3 days after laparoscopic cholecystectomy. Cholecystectomy complicated by small pneumothorax. Pneumothorax resolved without complications. On this admission evaluation included blood cultures that are currently negative, CT chest abdomen and pelvis which was unremarkable, nondiagnostic laboratory studies. History and physical did not point to other obvious cause. Fever resolved. Vital Signs Vital signs: Initial Vital Signs Temperature 99.3 F 09/26/21 16:56 Temperature Source Temporal Artery Scan 09/26/21 16:56 Pulse Rate 85 09/26/21 16:56 Pulse Rhythm 09/26/21 16:56 Respiratory Rate 28 H 09/26/21 16:56 Blood Pressure 148/74 H 09/26/21 16:56 Blood Pressure Mean 98 09/26/21 16:56 Blood Pressure Position Supine 09/26/21 16:56 Pulse Oximetry 95 09/26/21 16:56 Oxygen Delivery Method 09/26/21 16:56 Vital Signs Temperature 99.3 F 09/26/21 16:56 Pulse Rate 85 09/26/21 16:56 Respiratory Rate 28 H 09/26/21 16:56 Blood Pressure 148/74 H 09/26/21 16:56 Pulse Oximetry 95 09/26/21 16:56 Oxygen Delivery Method 09/26/21 16:56 Temperature 98.5 F 09/28/21 07:00 Pulse Rate 75 09/28/21 08:14 Respiratory Rate 18 09/28/21 08:12 Blood Pressure 172/81 H 09/28/21 07:00 Pulse Oximetry 96 09/28/21 07:00 Oxygen Delivery Method 09/28/21 07:00 Medical Decision Making Lab Data Labs: Lab Results 09/26/21 09/26/21 09/26/21 Range/Units 17:15 17:45 17:45 WBC 7.60 (4.50-11.00) K/uL RBC 4.49 (4.00-5.20) m/uL Hgb 13.4 (12.0-16.0) gm/dL Hct 40.2 (33.0-51.0) % MCV 90 (80-100) fL MCH 30 (26-34) pg MCHC 33 (32-36) gm/dL RDW Coeff of [place] 12.8 (11.5-15.5) % Plt Count 187 (140-440) K/uL Neut % (Auto) 83.4 H (42.0-72.0) % Lymph % (Auto) 6.7 L (20-44) % [place] % (Auto) 7.1 (0.0-11.0) % Eos % (Auto) 1.6 (0.0-7.0) % Baso % (Auto) 0.4 (0.0-3.0) % Neut # (Auto) 6.30 (1.7-7.0) K/uL Lymph # (Auto) 0.50 L (0.90-2.90) K/uL [place] # (Auto) 0.50 (0.00-0.90) K/UL Eos # (Auto) 0.12 (0.00-0.50) K/uL Baso # (Auto) 0.03 (0.00-0.30) K/uL Abs Immat Gran (auto) 0.06 (0.00-0.30) K/uL VBG pH (7.32-7.43) VBG pCO2 (40-50) mmHG VBG pO2 (25-47) mmHG VBG HCO3 (21-28) mmol/L Sodium 133 L (135-149) mmol/L Potassium 3.9 (3.6-5.1) mmol/L Chloride 100 (96-114) mmol/L Carbon Dioxide 27 (20-32) mmol/L BUN 15 (7-30) mg/dL Creatinine 0.7 (0.5-1.5) mg/dL Estimated Creat Clear 47.01 Estimated GFR 97 ml/min Glucose 153 H (60-115) mg/dL Lactate (0.5-1.9) mmol/L Calcium 8.9 (8.4-10.6) mg/dL Total Bilirubin 0.5 (0.1-1.5) mg/dL Direct Bilirubin 0.2 (0.0-0.5) mg/dL AST 56 H (12-35) U/L ALT 60 H (4-35) U/L Alkaline Phosphatase 134 (40-150) U/L Troponin I < 0.01 L (0.01-0.04) ng/mL C-Reactive Protein 2.4 H (0.5-1.0) mg/dL Total Protein 7.1 (6.0-8.3) g/dL Albumin 4.2 (3.3-5.0) g/dL Lipase 44 (23-300) U/L Urine Color Yellow (Yellow) Urine Appearance Clear (Clear) Urine pH 8.5 (5.0-8.5) Ur Specific [place] 1.020 (1.000-1.030) Urine Protein Negative (Negative) Urine Glucose (UA) Negative (Negative) Urine Ketones Negative (Negative) Urine Blood Negative (Negative) Urine Nitrite Negative (Negative) Urine Bilirubin Negative (Negative) Urine Urobilinogen 0.2 (0.2-1.0) Ur Leukocyte Esterase Negative (Negative) Influenza Type A Ag (Negative) Influenza Type B Ag (Negative) SARS-CoV-2 Ag (Rapid) (Negative) 09/26/21 09/26/21 09/26/21 Range/Units 17:45 17:45 21:18 WBC (4.50-11.00) K/uL RBC (4.00-5.20) m/uL Hgb (12.0-16.0) gm/dL Hct (33.0-51.0) % MCV (80-100) fL MCH (26-34) pg MCHC (32-36) gm/dL RDW Coeff of [place] (11.5-15.5) % Plt Count (140-440) K/uL Neut % (Auto) (42.0-72.0) % Lymph % (Auto) (20-44) % [place] % (Auto) (0.0-11.0) % Eos % (Auto) (0.0-7.0) % Baso % (Auto) (0.0-3.0) % Neut # (Auto) (1.7-7.0) K/uL Lymph # (Auto) (0.90-2.90) K/uL [place] # (Auto) (0.00-0.90) K/UL Eos # (Auto) (0.00-0.50) K/uL Baso # (Auto) (0.00-0.30) K/uL Abs Immat Gran (auto) (0.00-0.30) K/uL VBG pH 7.428 (7.32-7.43) VBG pCO2 43 (40-50) mmHG VBG pO2 32.1 (25-47) mmHG VBG HCO3 28 (21-28) mmol/L Sodium (135-149) mmol/L Potassium (3.6-5.1) mmol/L Chloride (96-114) mmol/L Carbon Dioxide (20-32) mmol/L BUN (7-30) mg/dL Creatinine (0.5-1.5) mg/dL Estimated Creat Clear Estimated GFR ml/min Glucose (60-115) mg/dL Lactate 1.4 (0.5-1.9) mmol/L Calcium (8.4-10.6) mg/dL Total Bilirubin (0.1-1.5) mg/dL Direct Bilirubin (0.0-0.5) mg/dL AST (12-35) U/L ALT (4-35) U/L Alkaline Phosphatase (40-150) U/L Troponin I (0.01-0.04) ng/mL C-Reactive Protein (0.5-1.0) mg/dL Total Protein (6.0-8.3) g/dL Albumin (3.3-5.0) g/dL Lipase (23-300) U/L Urine Color (Yellow) Urine Appearance (Clear) Urine pH (5.0-8.5) Ur Specific [place] (1.000-1.030) Urine Protein (Negative) Urine Glucose (UA) (Negative) Urine Ketones (Negative) Urine Blood (Negative) Urine Nitrite (Negative) Urine Bilirubin (Negative) Urine Urobilinogen (0.2-1.0) Ur Leukocyte Esterase (Negative) Influenza Type A Ag Negative (Negative) Influenza Type B Ag Negative (Negative) SARS-CoV-2 Ag (Rapid) (Negative) 09/26/21 Range/Units 21:23 WBC (4.50-11.00) K/uL RBC (4.00-5.20) m/uL Hgb (12.0-16.0) gm/dL Hct (33.0-51.0) % MCV (80-100) fL MCH (26-34) pg MCHC (32-36) gm/dL RDW Coeff of Arnulfo (11.5-15.5) % Plt Count (140-440) K/uL Neut % (Auto) (42.0-72.0) % Lymph % (Auto) (20-44) % [place] % (Auto) (0.0-11.0) % Eos % (Auto) (0.0-7.0) % Baso % (Auto) (0.0-3.0) % Neut # (Auto) (1.7-7.0) K/uL Lymph # (Auto) (0.90-2.90) K/uL [place] # (Auto) (0.00-0.90) K/UL Eos # (Auto) (0.00-0.50) K/uL Baso # (Auto) (0.00-0.30) K/uL Abs Immat Gran (auto) (0.00-0.30) K/uL VBG pH (7.32-7.43) VBG pCO2 (40-50) mmHG VBG pO2 (25-47) mmHG VBG HCO3 (21-28) mmol/L Sodium (135-149) mmol/L Potassium (3.6-5.1) mmol/L Chloride (96-114) mmol/L Carbon Dioxide (20-32) mmol/L BUN (7-30) mg/dL Creatinine (0.5-1.5) mg/dL Estimated Creat Clear Estimated GFR ml/min Glucose (60-115) mg/dL Lactate (0.5-1.9) mmol/L Calcium (8.4-10.6) mg/dL Total Bilirubin (0.1-1.5) mg/dL Direct Bilirubin (0.0-0.5) mg/dL AST (12-35) U/L ALT (4-35) U/L Alkaline Phosphatase (40-150) U/L Troponin I (0.01-0.04) ng/mL C-Reactive Protein (0.5-1.0) mg/dL Total Protein (6.0-8.3) g/dL Albumin (3.3-5.0) g/dL Lipase (23-300) U/L Urine Color (Yellow) Urine Appearance (Clear) Urine pH (5.0-8.5) Ur Specific [place] (1.000-1.030) Urine Protein (Negative) Urine Glucose (UA) (Negative) Urine Ketones (Negative) Urine Blood (Negative) Urine Nitrite (Negative) Urine Bilirubin (Negative) Urine Urobilinogen (0.2-1.0) Ur Leukocyte Esterase (Negative) Influenza Type A Ag (Negative) Influenza Type B Ag (Negative) SARS-CoV-2 Ag (Rapid) Negative (Negative) Discharge Plan Discharge Condition: Improved Activity Level: Activity as Tolerated Discharge Diet: Regular Prescriptions: Continued hydrocodone-acetaminophen 5-325 mg tablet 1 tab PO Q6H PRN (Reason: pain) Qty: 25 0RF atenolol 25 mg tablet 25 mg PO DAILY bupropion HCl [Wellbutrin SR] 150 mg tablet sustained-release 12 hr 150 mg PO QAM cholecalciferol (vitamin D3) 125 mcg (5,000 unit) capsule 125 mcg PO DAILY ferrous sulfate 325 mg (65 mg iron) tablet 325 mg PO DAILY fluticasone propionate 50 mcg/actuation spray,suspension 2 spray intranasal DAILY PRN Rx Instructions: administer into each nostril hydroxyzine HCl 25 mg tablet 25 mg PO Q6H PRN melatonin 3 mg capsule 3 mg PO HS PRN meloxicam 15 mg tablet 7.5 mg PO BID multivitamin Tablet 1 tab PO DAILY omeprazole 20 mg capsule,delayed release(DR/EC) 20 mg PO DAILY trazodone 50 mg tablet 50 - 100 mg PO HS Follow Up/Referrals: Randi Umana PA-C [Primary Care Provider] -
--- NOTE | 2021-09-26 21:48 | P.IMHP_ITS ---
Hospitalist- H&P: HPI History of Present Illness Time Seen by Provider: 21:48 Date Seen: 09/26/21 Chief complaint: Post op fever Narrative: Juli Nguyen is a 66 year old female who presented to the emergency room with her for concerns of fever. Patient had a cholecystectomy 3 days ago, postoperative course complicated by a small left apical pneumothorax. She remained stable and did well postoperatively, until today when she started feeling poorly. Noted throughout the day that her left back and left upper chest were sore and then noted that her temperature was going up (fever of >102). No associated nausea, mild lightheadedness. No dyspnea, but intermittently has discomfort over her incisions when taking a deep breath. No dysuria (saw Urology yesterday, had cystoscopy), no headaches. No skin concerns. Last dental visit was July 25. ER Course and Findings: - temperature of 102?, rest of vital signs within normal limits - Normal white blood count, mildly elevated CRP, mildly elevated LFTs (normal in August of 2020) - No acute findings on CT scan of chest abdomen and pelvis - Zosyn initiated Her past medical history is significant for non insulin-dependent DM2.? Her last A1c was 6.4 in July 2021. She is a former smoker and quit in 2004. No chronic lung disease, but was quite ill with RSV pneumonia last year. Had COVID at the end of July, thrice vaccinated. She very rarely drinks alcohol. Father at age 52 of acute coronary syndrome. Works at [employer] locally, lives with . Review of Systems Status of ROS: Reports: 10 or more systems reviewed and unremarkable except as noted in History and below [facility] Medical History (Updated 09/26/21 @ 22:00 by Diane Priest MD) Acute pain of both shoulders Adenomatous colon polyp De Quervain's disease (tenosynovitis) Displacement of lumbar intervertebral disc without myelopathy Essential (primary) hypertension Gastroesophageal reflux disease with esophagitis Insomnia Iron deficiency anemia, unspecified Major depressive disorder, recurrent, unspecified Onychomycosis Pneumonia, unspecified organism Prediabetes Type 2 diabetes mellitus with unspecified complications Urgency of urination Vitamin D deficiency, unspecified Surgical History (Updated 09/24/21 @ 11:13 by Pedro Matthew MD) H/O left knee surgery History of bladder suspension procedure History of cholecystectomy History of umbilical hernia repair Social History (Updated 09/23/21 @ 12:08 by Latanya Álvarez MD) Narrative: Patient denies smoking. She works as a teacher. Smoking Status: Never smoker How often do you have a drink containing alcohol: monthly or less Alcohol type: wine How often do you have six or more drinks on one occasion: Never AUDIT-C Alcohol total score: 1 Non-prescribed substance use: denies use Caffeine: Yes (coffee) service: No Meds Home Medications and Allergies Home Medications Medication Instructions Recorded Confirmed Type atenolol 25 mg tablet 25 mg PO DAILY 08/19/21 09/26/21 History bupropion HCl 150 mg tablet,12 hr 150 mg PO QAM 08/19/21 09/26/21 History sustained-release (Wellbutrin SR) cholecalciferol (vitamin D3) 125 125 mcg PO DAILY 08/19/21 09/26/21 History mcg (5,000 unit) capsule ferrous sulfate 325 mg (65 mg 325 mg PO DAILY 08/19/21 09/26/21 History iron) tablet fluticasone propionate 50 2 spray intranasal DAILY PRN 08/19/21 09/26/21 History mcg/actuation nasal spray,suspension hydroxyzine HCl 25 mg tablet 25 mg PO Q6H PRN 08/19/21 09/26/21 History melatonin 3 mg capsule 3 mg PO HS PRN 08/19/21 09/26/21 History meloxicam 15 mg tablet 7.5 mg PO BID 08/19/21 09/26/21 History multivitamin 1 tab PO DAILY 08/19/21 09/26/21 History omeprazole 20 mg capsule,delayed 20 mg PO DAILY 08/19/21 09/26/21 History release trazodone 50 mg tablet 50 - 100 mg PO HS 08/19/21 09/26/21 History Allergies Allergy/AdvReac Type Severity Reaction Status Date / Time lisinopril Allergy Cough Verified 09/26/21 16:54 Sulfa (Sulfonamide Allergy Verified 09/26/21 16:54 Antibiotics) terbinafine Allergy Verified 09/26/21 16:54 Exam Narrative: Exam Narrative: GEN: Alert and oriented, sitting comfortably in chair and answering questions appropriately HEENT: Normal external ears, EOMIs bilaterally, no scleral icterus CV: RRR, no concerning murmurs, rubs, or gallops R: No concerning wheezing, rales, or rhonchi, no tachypnea Ext: wwp, no concerning edema Skin: No concerning skin lesions or rashes. Incisions from recent surgery are healing well without signs or symptoms of cellulitis Neuro: Nonfocal, no resting tremor Psych: Appropriate Const: Vital Signs, click to edit/add: Vital Signs - 24 hr 09/26/21 16:56 09/26/21 17:00 09/26/21 18:00 Temperature 99.3 F Pulse Rate [Apical ] 85 86 85 Respiratory Rate 28 H 24 24 Blood Pressure [Le ft Forearm] 148/74 H 140/70 H 147/72 H Pulse Oximetry 95 95 95 Oxygen Delivery Me thod Room Air Room Air Room Air 09/26/21 18:30 09/26/21 19:00 Temperature 102.0 F H Pulse Rate [Apical ] 87 90 Respiratory Rate Blood Pressure [Le ft Forearm] 151/66 H 138/71 Pulse Oximetry 95 95 Oxygen Delivery Me thod Room Air Room Air Hospitalist - H&P: Result Labs Labs: Short CBC 09/26/21 Range/Units 17:45 WBC 7.60 (4.50-11.00) K/uL Hgb 13.4 (12.0-16.0) gm/dL Hct 40.2 (33.0-51.0) % Plt Count 187 (140-440) K/uL BMP 09/26/21 17:45 Sodium 133 L Potassium 3.9 Chloride 100 Carbon Dioxide 27 BUN 15 Creatinine 0.7 Glucose 153 H Calcium 8.9 Cardiac Enzymes 09/26/21 Range/Units 17:45 Troponin I < 0.01 L (0.01-0.04) ng/mL Liver Function 09/26/21 Range/Units 17:45 Total Bilirubin 0.5 (0.1-1.5) mg/dL Direct Bilirubin 0.2 (0.0-0.5) mg/dL AST 56 H (12-35) U/L ALT 60 H (4-35) U/L Alkaline Phosphatase 134 (40-150) U/L Albumin 4.2 (3.3-5.0) g/dL Urine 09/26/21 Range/Units 17:15 Urine Color Yellow (Yellow) Urine Appearance Clear (Clear) Urine pH 8.5 (5.0-8.5) Ur Specific [place] 1.020 (1.000-1.030) Urine Protein Negative (Negative) Urine Glucose (UA) Negative (Negative) Assessment and Plan Assessment and plan (1) Fever of unknown origin: Status: Acute (2) History of cholecystectomy: Status: Acute (3) Essential (primary) hypertension: Status: Acute (4) Non-insulin dependent diabetes mellitus: Status: Acute (5) Insomnia: Problem comment: Continue home medications of melatonin and trazodone Status: Acute Plan 66-year-old female with fever of unknown origin. ED imaging and exam reassuring. Patient otherwise appears nontoxic and has normal VS (although on a daily BB). DDx includes viral process, postoperative infection, endocarditis. Given fever and recent surgery, Zosyn was initiated in the emergency room, will continue this on the floor. Obtain TTE. Continue home medications for above-mentioned comorbidities. Lovenox for prophylaxis. Patient requests full code status. Discussed plan of care with patient and , questions answered.
[2021-09-26] MEDS: PIPERACILLIN/TAZOBACTAM 3.375 GM in 0.9 % SODIUM CHLORIDE Mini-bag 100 ML IVPB (22:03)
[2021-09-26 22:04] LABS: SARS Antigen* Negative (Negative)
[2021-09-26 22:05] LABS: Influenza Type A Negative (Negative); Influenza Type B Negative (Negative)
--- NOTE | 2021-09-26 22:22 | W.PC.EDHO ---
Primary Language: Preferred Language: Orientation Status: [x] Alert & Oriented [] Slight Confusion [] Known Dx Dementia Transfers By: [] Assist of 1 [] Assist of 2 [] Lift Active Medications Discontinued Medications Generic Name Dose Route Start Last Admin Trade Name Abhijit PRN Reason Stop Dose Admin Piperacillin Sod/Tazobactam 100 mls @ 200 mls/hr 09/26/21 21:27 09/26/21 22:03 Sod 3.375 gm/ Sodium Chloride IVPB 09/26/21 21:28 200 mls/hr ONCE ONE Administration Description of Symptoms ED Triage Present Problem had a lap choley 09/23/[address] geradro here. had Description complications with nicking the diaphram that caused a pneumo. needed to spend the night and was released 09/24/21. today felt worse with a fever -up to 101.3. feels achy, fatigued, doesn't feel good. has pain on the left side of chest. feels more sob with activity and with inspiration. ED Triage Date of Onset of 09/26/21 Symptoms Female History Patient No Pain Pain Description [Left Lower Dull, Achy Chest] Pain Description [Left Lower Sharp,Dull, Achy,With Movement Chest] Pain Intensity [Left Lower 7 Chest] Pain Intensity 4 Pain Intensity 4 Pain Intensity 4 Pain Intensity 4 Pain Intensity 4 Pain Scale Used [Left Lower Numeric (1 - 10) Chest] Pain Scale Used [Left Lower Numeric (1 - 10) Chest] Pain Scale Used Numeric (1 - 10) Pain Scale Used Numeric (1 - 10) Pain Scale Used Numeric (1 - 10) Pain Scale Used Numeric (1 - 10) Pain Scale Used Numeric (1 - 10) IV Insertion/Site Date of IV Line Insertion [ 09/26/21 Right Antecubital] Oxygen Administration Pulse Oximetry 95 Pulse Oximetry 95 Pulse Oximetry 95 Pulse Oximetry 95 Pulse Oximetry 95 Oxygen Delivery Method Room Air Oxygen Delivery Method Room Air Oxygen Delivery Method Room Air Oxygen Delivery Method Room Air Oxygen Delivery Method Room Air Cardiac Monitoring EKG Method 12 Lead EKG Method 12 Lead
[2021-09-26] MEDS: 0.9 % SODIUM CHLORIDE 1000 ml 1,000 ML 75 ML IV (23:45)
[2021-09-27] VITALS (9 sets, daily range): BP systolic 132–161; BP diastolic 63–78; PULSE 60–78; RESP 16–18; TEMP 36.8–37.9; O2SAT 91–97
[2021-09-27] MEDS: ACETAMINOPHEN 325 MG TABLET 975 MG PO (03:29)
[2021-09-27] MEDS: PIPERACILLIN/TAZOBACTAM 3.375 GM in 0.9 % SODIUM CHLORIDE Mini-bag 100 ML IVPB ×4 (04:09→21:37)
[2021-09-27] MEDS: hydrOXYzine pamoate 25 MG CAPSULE PO ×2 (04:09→21:38)
[2021-09-27] MEDS: OMEPRAZOLE 20 MG CAPSULE DR PO (07:32)
[2021-09-27 07:37] LABS: Basophils Percent Auto 0.2 % (0.0-3.0); Eosinophils Percent Auto 1.4 % (0.0-7.0); Hematocrit 39.9 % (33.0-51.0); Hemoglobin* 13.3 gm/dL (12.0-16.0); Immature Granulocytes Abs Auto 0.04 K/uL (0.00-0.30); Lymphocytes Percent Auto 19.8 % (20-44); Mean Corpuscular HGB Conc 33 gm/dL (32-36); Mean Corpuscular Hemoglobin 30 pg (26-34); Mean Corpuscular Volume 90 fL (80-100); Monocytes Percent Auto 16.8 % (0.0-11.0); Neutrophils Percent Auto 60.9 % (42.0-72.0); Platelet Count* 218 K/uL (140-440); RDW Coefficient of Variation % 13.1 % (11.5-15.5); Red Blood Count 4.42 m/uL (4.00-5.20); White Blood Count* 4.29 K/uL (4.50-11.00)
[2021-09-27 07:42] LABS: Slide Review Reflex No
[2021-09-27 07:51] LABS: Chloride* 104 mmol/L (96-114)
[2021-09-27 07:52] LABS: Potassium* 3.7 mmol/L (3.6-5.1); Sodium* 137 mmol/L (135-149)
[2021-09-27 07:54] LABS: Bilirubin Total* 0.6 mg/dL (0.1-1.5); Carbon Dioxide* 28 mmol/L (20-32); Creatinine* 0.7 mg/dL (0.5-1.5); Est. Creatinine Clearance* 47.01; Estimated Glomerular Filt Rate 97 ml/min
[2021-09-27 07:55] LABS: Alanine Aminotransferase* 76 U/L (4-35); Alkaline Phosphatase* 128 U/L (40-150); Aspartate Amino Transferase* 68 U/L (12-35); Blood Urea Nitrogen* 10 mg/dL (7-30); Calcium* 8.9 mg/dL (8.4-10.6); Glucose* 133 mg/dL (60-115); Total Protein* 6.9 g/dL (6.0-8.3)
[2021-09-27 07:58] LABS: C Reactive Protein* 5.4 mg/dL (0.5-1.0)
[2021-09-27] MEDS: atenoloL 25 MG TABLET PO (08:52)
[2021-09-27] MEDS: FERROUS SULFATE 325 MG TABLET PO (08:52)
[2021-09-27] MEDS: MULTIVITAMIN/MINERALS 1 TABLET 1 TAB PO (08:52)
[2021-09-27] MEDS: buPROPion HCL SR 150 MG TAB PO (08:55)
[2021-09-27] MEDS: ACETAMINOPHEN 500 MG TABLET 1000 MG PO ×2 (09:42→19:45)
--- NOTE | 2021-09-27 09:47 | P.IMPN_ITS ---
Progress Note: A&P Assessment and plan (1) Postoperative fever: Status: Acute Assessment and Plan: Now 4 days postop laparoscopic cholecystectomy. Chest abdomen pelvis CT, blood tests urine tests and examination do not show an obvious source for fever. Await blood cultures. Continue antibiotics. Monitor fever. Differential diagnosis includes a relatively benign postop fever verses occult infection or bacteremia. If fever resolves I think would be safe to discharge her for outpatient followup. (2) Pneumothorax, left: Problem details: Resolved Status: Acute Assessment and Plan: Resolved and now asymptomatic (3) History of cholecystectomy: Status: Acute Assessment and Plan: No obvious complications related to surgery (4) Chest pain: Problem details: Improved Status: Acute Assessment and Plan: Resolved Plan Continue in hospital with broad-spectrum antibiotics for 1 more day of monitoring fever and other symptoms. Consider discharge to home if fever resolves and no obvious source for fever in the next day or 2 Time Spent With Patient Total time spent: Total time spent today is 40 minutes, 30 minutes in coordination of care and discussing with patient and other providers management of postoperative fever Subjective Date Seen: 09/27/21 Interval history: 66-year-old female day 4 status post laparoscopic cholecystectomy admitted with fever. At the time of admission she also had left shoulder pain which was pleuritic in nature. Generalized fatigue malaise and achiness were also present. Those symptoms have largely resolved. She still having a fever this morning. No shortness of breath, cold, cough. She reports a slight sore throat which she attributed to intubation from her surgery. No shoulder, back, chest pain. She has postop abdominal pain which she says is better each day. She has been eating. Her bowel function has been normal. She has been urinating normally. Reviewed other history including COVID infection from August 19, cystoscopy from 2 days ago. No other history of travel or exposures. Exam Narrative: Exam Narrative: She is alert and appears in no distress. Eyes normal. Oropharynx normal. Small airway. Neck is supple without mass or adenopathy. Respirations are clear to auscultation. Cardiovascular: S1, S2, regular rate and rhythm. No murmur gallop or rub. Abdomen: Bowel sounds active. Abdomen is soft without tenderness or mass. Incisions are all well healed without erythema or drainage. Some bruising around her umbilicus. Benign abdominal examination. Skin is without rash. No erythema. No inflamed joints. Const: Vital Signs, click to edit/add: Vital Signs - 24 hr 09/26/21 16:56 09/26/21 17:00 09/26/21 18:00 Temperature 99.3 F Pulse Rate Pulse Rate [Apical ] 85 86 85 Pulse Rate [Left R adial] Respiratory Rate 28 H 24 24 Blood Pressure [Le ft Arm] Blood Pressure [Le ft Forearm] 148/74 H 140/70 H 147/72 H Pulse Oximetry 95 95 95 [facility] Room Air Room Air 09/26/21 18:30 09/26/21 19:00 09/26/21 22:49 Temperature 102.0 F H Pulse Rate Pulse Rate [Apical ] 87 90 Pulse Rate [Left R adial] Respiratory Rate Blood Pressure [Le ft Arm] Blood Pressure [Le ft Forearm] 151/66 H 138/71 Pulse Oximetry 95 95 97 Oxygen Delivery [facility] Room Air Room Air Room Air 09/26/21 23:25 09/26/21 23:31 09/26/21 20:00 Temperature 98.5 F Pulse Rate Pulse Rate [Apical ] 90 Pulse Rate [Left R adial] 89 Respiratory Rate 16 18 33 H Blood Pressure [Le ft Arm] 146/82 H Blood Pressure [Le ft Forearm] 144/79 H Pulse Oximetry 97 94 Oxygen Delivery [facility] Room Air Room Air Room Air 09/26/21 20:30 09/26/21 21:30 09/26/21 22:38 Temperature 99.4 F 98.4 F Pulse Rate Pulse Rate [Apical ] 90 93 Pulse Rate [Left R adial] 89 Respiratory Rate 33 H 21 16 Blood Pressure [Le ft Arm] 146/82 H Blood Pressure [Le ft Forearm] 136/92 H 151/74 H Pulse Oximetry 89 91 97 [facility] Room Air Room Air 09/26/21 22:49 09/27/21 03:29 09/27/21 04:22 Temperature 98.2 F 99.3 F Pulse Rate 97 Pulse Rate [Apical ] Pulse Rate [Left R adial] 78 Respiratory Rate 16 Blood Pressure [Le ft Arm] 151/72 H Blood Pressure [Le ft Forearm] Pulse Oximetry 91 [facility] 09/27/21 07:05 09/27/21 07:05 09/27/21 07:05 Temperature 98.9 F Pulse Rate 67 Pulse Rate [Apical ] Pulse Rate [Left R adial] 75 75 Respiratory Rate 18 18 Blood Pressure [Le ft Arm] 145/63 H Blood Pressure [Le ft Forearm] Pulse Oximetry 94 Oxygen Delivery Me thod Room Air 09/27/21 09:42 Temperature 100.3 F H Pulse Rate Pulse Rate [Apical ] Pulse Rate [Left R adial] Respiratory Rate Blood Pressure [Le ft Arm] Blood Pressure [Le ft Forearm] Pulse Oximetry Oxygen Delivery Me thod Documenting provider has reviewed patient's vital signs: yes Labs Labs: Laboratory Results - last 24 hr 09/26/21 09/26/21 09/26/21 17:15 17:45 17:45 WBC 7.60 RBC 4.49 Hgb 13.4 Hct 40.2 MCV 90 MCH 30 MCHC 33 RDW Coeff of [place] 12.8 Plt Count 187 Neut % (Auto) 83.4 H Lymph % (Auto) 6.7 L [place] % (Auto) 7.1 Eos % (Auto) 1.6 Baso % (Auto) 0.4 Neut # (Auto) 6.30 Lymph # (Auto) 0.50 L [place] # (Auto) 0.50 Eos # (Auto) 0.12 Baso # (Auto) 0.03 Abs Immat Gran (auto) 0.06 VBG pH VBG pCO2 VBG pO2 VBG HCO3 Sodium 133 L Potassium 3.9 Chloride 100 Carbon Dioxide 27 BUN 15 Creatinine 0.7 Estimated Creat Clear 47.01 Estimated GFR 97 Glucose 153 H Lactate Calcium 8.9 Total Bilirubin 0.5 Direct Bilirubin 0.2 AST 56 H ALT 60 H Alkaline Phosphatase 134 Troponin I < 0.01 L C-Reactive Protein 2.4 H Total Protein 7.1 Albumin 4.2 Lipase 44 Urine Color Yellow Urine Appearance Clear Urine pH 8.5 Ur Specific [place] 1.020 Urine Protein Negative Urine Glucose (UA) Negative Urine Ketones Negative Urine Blood Negative Urine Nitrite Negative Urine Bilirubin Negative Urine Urobilinogen 0.2 Ur Leukocyte Esterase Negative Influenza Type A Ag Influenza Type B Ag SARS-CoV-2 Ag (Rapid) 09/26/21 09/26/21 09/26/21 17:45 17:45 21:18 WBC RBC Hgb Hct MCV MCH MCHC RDW Coeff of [place] Plt Count Neut % (Auto) Lymph % (Auto) [place] % (Auto) Eos % (Auto) Baso % (Auto) Neut # (Auto) Lymph # (Auto) [place] # (Auto) Eos # (Auto) Baso # (Auto) Abs Immat Gran (auto) VBG pH 7.428 VBG pCO2 43 VBG pO2 32.1 VBG HCO3 28 Sodium Potassium Chloride Carbon Dioxide BUN Creatinine Estimated Creat Clear Estimated GFR Glucose Lactate 1.4 Calcium Total Bilirubin Direct Bilirubin AST ALT Alkaline Phosphatase Troponin I C-Reactive Protein Total Protein Albumin Lipase Urine Color Urine Appearance Urine pH Ur Specific [place] Urine Protein Urine Glucose (UA) Urine Ketones Urine Blood Urine Nitrite Urine Bilirubin Urine Urobilinogen Ur Leukocyte Esterase Influenza Type A Ag Negative Influenza Type B Ag Negative SARS-CoV-2 Ag (Rapid) 09/26/21 09/27/21 09/27/21 21:23 06:05 06:05 WBC 4.29 L RBC 4.42 Hgb 13.3 Hct 39.9 MCV 90 MCH 30 MCHC 33 RDW Coeff of [place] 13.1 Plt Count 218 Neut % (Auto) 60.9 Lymph % (Auto) 19.8 L [place] % (Auto) 16.8 H Eos % (Auto) 1.4 Baso % (Auto) 0.2 Neut # (Auto) 2.60 Lymph # (Auto) 0.80 L [place] # (Auto) 0.70 Eos # (Auto) 0.10 Baso # (Auto) 0.00 Abs Immat Gran (auto) 0.04 VBG pH VBG pCO2 VBG pO2 VBG HCO3 Sodium 137 Potassium 3.7 Chloride 104 Carbon Dioxide 28 BUN 10 Creatinine 0.7 Estimated Creat Clear 47.01 Estimated GFR 97 Glucose 133 H Lactate Calcium 8.9 Total Bilirubin 0.6 Direct Bilirubin AST 68 H ALT 76 H Alkaline Phosphatase 128 Troponin I C-Reactive Protein 5.4 H Total Protein 6.9 Albumin 4.0 Lipase Urine Color Urine Appearance Urine pH Ur Specific [place] Urine Protein Urine Glucose (UA) Urine Ketones Urine Blood Urine Nitrite Urine Bilirubin Urine Urobilinogen Ur Leukocyte Esterase Influenza Type A Ag Influenza Type B Ag SARS-CoV-2 Ag (Rapid) Negative
[2021-09-27 09:54] LABS: Glucose, Point-of-Care* 133 mg/dl (60-115)
--- NOTE | 2021-09-27 10:09 | PM.GSPN ---
Subjective Subjective Date Seen: 09/27/21 Interval history: Patient is doing ok this morning. Her pain is minimal and much improved since being admitted. She did have a fever this morning. Ambulating well, tolerating a diet and no other concerns. Exam Narrative: Exam Narrative: Gen: alert and oriented, sitting in bed comfortable Resp: equal breath rise, maintained on room air CV: RRR Abdomen: soft, non tender, some surrounding ecchymosis around umbilical incision. Other incisions c/d/i, no concern for infection. Const: Vital Signs, click to edit/add: Vital Signs - 24 hr 09/26/21 16:56 09/26/21 17:00 09/26/21 18:00 Temperature 99.3 F Pulse Rate Pulse Rate [Apical ] 85 86 85 Pulse Rate [Left R adial] Respiratory Rate 28 H 24 24 Blood Pressure [Le ft Arm] Blood Pressure [Le ft Forearm] 148/74 H 140/70 H 147/72 H Pulse Oximetry 95 95 95 [facility] Room Air Room Air 09/26/21 18:30 09/26/21 19:00 09/26/21 22:49 Temperature 102.0 F H Pulse Rate Pulse Rate [Apical ] 87 90 Pulse Rate [Left R adial] Respiratory Rate Blood Pressure [Le ft Arm] Blood Pressure [Le ft Forearm] 151/66 H 138/71 Pulse Oximetry 95 95 97 Oxygen Delivery [facility] Room Air Room Air Room Air 09/26/21 23:25 09/26/21 23:31 09/26/21 20:00 Temperature 98.5 F Pulse Rate Pulse Rate [Apical ] 90 Pulse Rate [Left R adial] 89 Respiratory Rate 16 18 33 H Blood Pressure [Le ft Arm] 146/82 H Blood Pressure [Le ft Forearm] 144/79 H Pulse Oximetry 97 94 [facility] Room Air Room Air 09/26/21 20:30 09/26/21 21:30 09/26/21 22:38 Temperature 99.4 F 98.4 F Pulse Rate Pulse Rate [Apical ] 90 93 Pulse Rate [Left R adial] 89 Respiratory Rate 33 H 21 16 Blood Pressure [Le ft Arm] 146/82 H Blood Pressure [Le ft Forearm] 136/92 H 151/74 H Pulse Oximetry 89 91 97 [facility] Room Air Room Air 09/26/21 22:49 09/27/21 03:29 09/27/21 04:22 Temperature 98.2 F 99.3 F Pulse Rate 97 Pulse Rate [Apical ] Pulse Rate [Left R adial] 78 Respiratory Rate 16 Blood Pressure [Le ft Arm] 151/72 H Blood Pressure [Le ft Forearm] Pulse Oximetry 91 Oxygen Delivery Me thod Room Air 09/27/21 07:05 09/27/21 07:05 09/27/21 07:05 Temperature 98.9 F Pulse Rate 67 Pulse Rate [Apical ] Pulse Rate [Left R adial] 75 75 Respiratory Rate 18 18 Blood Pressure [Le ft Arm] 145/63 H Blood Pressure [Le ft Forearm] Pulse Oximetry 94 Oxygen Delivery Me thod Room Air 09/27/21 09:42 Temperature 100.3 F H Pulse Rate Pulse Rate [Apical ] Pulse Rate [Left R adial] Respiratory Rate Blood Pressure [Le ft Arm] Blood Pressure [Le ft Forearm] Pulse Oximetry Oxygen Delivery Me thod Labs/Imaging Labs Labs: No evidence of leukocytosis, CRP is trending up (2.4 --> 5.4 Progress Note: A&P Assessment and plan (1) Postoperative fever: Status: Acute Assessment and Plan: Patient is s/p lap cholecystectomy for biliary colic. Her procedure was complicated by port entry into the chest. She was observed overnight and able to discharge home during that stay. She unfortunately came back to the ED with chest pain and fever. A CT scan was obtained and showed appropriate post operative changes. Patients pain has resolved and incisions are healing well. She did have a fever this morning, with labs demonstrating uptrending CRP. I discussed these findings with the patient and Dr. Matthew. Will plan for patient to stay in the hospital and continue to trend fever curve/labs. Will cotninue antibiotics.
--- NOTE | 2021-09-27 14:28 | PC.NURSE ---
End of shift. pt has been pleasant. abd pain 0-2 she got po Tylenol for pain. temp of 100.3 she is eating, drinking and voiding. she is getting IV antibiotics x2. she was SL per md. she is up ab sofie in the room. glucose was 133 this am. and she refused her noon blood sugar and she said she will not take insulin. tele is NSR> no scds per pt was she is getting up to void alot. she had her gall bladder out 5 days ago lap site are [employer]
--- NOTE | 2021-09-27 18:44 | PC.NURSE ---
Pt is doing well. last A1c was 6.2 and pt has declined blood sugars. no pain
[2021-09-27] MEDS: ENOXAPARIN 40 MG/0.4 ML INJ SUBCUT (21:15)
[2021-09-27] MEDS: 0.9 % SODIUM CHLORIDE 250 ml IV (21:37)
[2021-09-27] MEDS: TRAZODONE HCL 50 MG TABLET PO (21:37)
[2021-09-27] MEDS: MELATONIN 3 MG TABLET PO (21:38)
[2021-09-28 03:00] VITALS: BP 158/84; PULSE 74; RESP 18; TEMP 36.7; O2SAT 95
[2021-09-28] MEDS: PIPERACILLIN/TAZOBACTAM 3.375 GM in 0.9 % SODIUM CHLORIDE Mini-bag 100 ML IVPB (03:38)
[2021-09-28] MEDS: OMEPRAZOLE 20 MG CAPSULE DR PO (06:35)
--- NOTE | 2021-09-28 06:40 | PC.NURSE ---
[id number]: Patient pleasant and cooperative. Afebrile during shift. Rates pain 2-3/10 in the lower back. PRN Tylenol administered x1 for relief. Eating and voiding. Independent in room.
[2021-09-28 07:00] VITALS: BP 172/81; PULSE 72; RESP 18; TEMP 36.9; O2SAT 96
[2021-09-28 07:17] LABS: Basophils Absolute Auto 0.03 K/uL (0.00-0.30); Basophils Percent Auto 0.5 % (0.0-3.0); Eosinophils Absolute Auto 0.16 K/uL (0.00-0.50); Eosinophils Percent Auto 2.6 % (0.0-7.0); Hematocrit 38.8 % (33.0-51.0); Hemoglobin* 12.7 gm/dL (12.0-16.0); Immature Granulocytes Abs Auto 0.03 K/uL (0.00-0.30); Lymphocytes Percent Auto 19.2 % (20-44); Mean Corpuscular HGB Conc 33 gm/dL (32-36); Mean Corpuscular Hemoglobin 30 pg (26-34); Mean Corpuscular Volume 92 fL (80-100); Monocytes Percent Auto 13.5 % (0.0-11.0); Neutrophils Absolute Auto 3.95 K/uL (1.7-7.0); Neutrophils Percent Auto 63.7 % (42.0-72.0); Platelet Count* 197 K/uL (140-440); RDW Coefficient of Variation % 13.1 % (11.5-15.5); Red Blood Count 4.24 m/uL (4.00-5.20)
[2021-09-28 07:22] LABS: Slide Review Reflex No
[2021-09-28 07:26] LABS: Albumin* 3.6 g/dL (3.3-5.0)
[2021-09-28 07:29] LABS: Bilirubin Direct* 0.1 mg/dL (0.0-0.5); Bilirubin Total* 0.4 mg/dL (0.1-1.5)
[2021-09-28 07:30] LABS: Alanine Aminotransferase* 77 U/L (4-35); Alkaline Phosphatase* 133 U/L (40-150); Aspartate Amino Transferase* 51 U/L (12-35); Total Protein* 6.2 g/dL (6.0-8.3)
[2021-09-28 07:32] LABS: C Reactive Protein* 3.7 mg/dL (0.5-1.0)
[2021-09-28 08:12] VITALS: PULSE 72; RESP 18
[2021-09-28 08:14] VITALS: PULSE 75
[2021-09-28] MEDS: FERROUS SULFATE 325 MG TABLET PO (09:03)
[2021-09-28] MEDS: buPROPion HCL SR 150 MG TAB PO (09:03)
[2021-09-28] MEDS: MULTIVITAMIN/MINERALS 1 TABLET 1 TAB PO (09:03)
[2021-09-28] MEDS: atenoloL 25 MG TABLET PO (09:03)
--- NOTE | 2021-09-28 09:10 | P.DS_ITS ---
DS: Providers Provider Date Seen: 09/28/21 Date of admission: 09/26/21 22:22 Primary care physician: Randi Umana PA-C Admitting Clinician: Diane Priest MD Date of Discharge: 09/28/21 DS: Diagnosis Discharge Diagnosis (1) Postoperative fever: Status: Acute Problem details: Evaluation in the hospital has not shown surgical complication or other infection to explain fever. Fever has resolved (2) History of cholecystectomy: Status: Acute Problem details: Recovering well (3) Pneumothorax, left: Status: Acute Problem details: Resolved (4) Elevated liver transaminase level: Status: Acute Problem details: Mild elevation. Recent gallbladder surgery but no other obvious cause. CT scan did not show any other abnormalities including no fatty liver (5) History of hematuria: Status: Acute Problem details: Prior to this admission was being evaluated for hematuria. No problems during this hospital stay. CT abdomen pelvis with contrast showed no significant abnormalities to explain hematuria. DS: Summary Hospital Course Hospital Course: 66-year-old female presented with fever 3 days after laparoscopic cholecystectomy. Cholecystectomy complicated by small pneumothorax. Pneumothorax resolved without complications. On this admission evaluation included blood cultures that are currently negative, CT chest abdomen and pelvis which was unremarkable, nondiagnostic laboratory studies. History and physical did not point to other obvious cause. Fever resolved. Status at Discharge Functional status at discharge: independent ambulation Overall status at discharge: patient is back to baseline Time Spent with Patient Time attestation: Total time spent providing and/or coordinating discharge services: Time spent: Greater than 30 minutes Exam Narrative: Exam Narrative: She is alert and appears in no distress. Speech is normal. She is oriented to her circumstances. Respirations are clear to auscultation. Cardiovascular: S1, S2, regular rate and rhythm. Abdomen: Bowel sounds active. Abdomen is soft without significant tenderness or mass. Abdominal incisions with minimal bruising, no erythema or drainage. Extremities without edema. Skin is without rash. Const: Vital Signs, click to edit/add: Vital Signs - 24 hr 09/27/21 09:42 09/27/21 12:38 09/27/21 12:43 Temperature 100.3 F H 99.0 F 99.0 F Pulse Rate Pulse Rate [Left R adial] 64 Respiratory Rate 18 Blood Pressure [Le ft Arm] 139/77 Pulse Oximetry 94 Oxygen Delivery Me thod Room Air 09/27/21 15:00 08/05/22 15:00 09/27/21 15:00 Temperature 98.4 F Pulse Rate 60 Pulse Rate [Left R adial] 60 60 Respiratory Rate 16 16 Blood Pressure [Le ft Arm] 141/78 H Pulse Oximetry 94 Oxygen Delivery Me thod Room Air 09/27/21 19:00 09/27/21 23:00 09/27/21 23:00 Temperature 98.6 F 98.5 F Pulse Rate 77 Pulse Rate [Left R adial] 70 67 Respiratory Rate 18 16 Blood Pressure [Le ft Arm] 161/77 H 132/74 Pulse Oximetry 97 95 Oxygen Delivery Me thod Room Air Room Air 09/28/21 03:00 09/28/21 07:00 09/28/21 08:12 Temperature 98.1 F 98.5 F Pulse Rate Pulse Rate [Left R adial] 74 72 72 Respiratory Rate 18 18 18 Blood Pressure [Le ft Arm] 158/84 H 172/81 H Pulse Oximetry 95 96 Oxygen Delivery Me thod Room Air Room Air 09/28/21 08:14 Temperature Pulse Rate 75 Pulse Rate [Left R adial] Respiratory Rate Blood Pressure [Le ft Arm] Pulse Oximetry Oxygen Delivery Me thod Documenting provider has reviewed patient's vital signs: yes DS: Data Data Completed and Pending Labs on day of discharge: Labs from last 24 hours 09/28/21 09/28/21 09/27/21 06:16 06:16 09:00 WBC 6.20 RBC 4.24 Hgb 12.7 Hct 38.8 MCV 92 MCH 30 MCHC 33 RDW Coeff of [place] 13.1 Plt Count 197 Neut % (Auto) 63.7 Lymph % (Auto) 19.2 L [place] % (Auto) 13.5 H Eos % (Auto) 2.6 Baso % (Auto) 0.5 Neut # (Auto) 3.95 Lymph # (Auto) 1.20 [place] # (Auto) 0.80 Eos # (Auto) 0.16 Baso # (Auto) 0.03 Abs Immat Gran (auto) 0.03 Total Bilirubin 0.4 Direct Bilirubin 0.1 AST 51 H ALT 77 H Alkaline Phosphatase 133 C-Reactive Protein 3.7 H Total Protein 6.2 Albumin 3.6 POC Glucose 133 H Preliminary micro results at discharge 09/26/21 21:23 Blood Culture - Preliminary Blood NO GROWTH AFTER 24 HOURS 09/26/21 21:15 Blood Culture - Preliminary Blood NO GROWTH AFTER 24 HOURS Discharge Plan Discharge Disposition: Home, Self-Care Date of Admission: 09/26/21 22:22 Attending Provider on Discharge: Pedro Matthew Primary Care Provider: Randi Umana Condition: Improved Anticipated Discharge Date/Time: 09/28/21 09:17 Discharge Medications: Continued hydrocodone-acetaminophen 5-325 mg tablet 1 tab PO Q6H PRN (Reason: pain) Qty: 25 0RF atenolol 25 mg tablet 25 mg PO DAILY bupropion HCl [Wellbutrin SR] 150 mg tablet sustained-release 12 hr 150 mg PO QAM cholecalciferol (vitamin D3) 125 mcg (5,000 unit) capsule 125 mcg PO DAILY ferrous sulfate 325 mg (65 mg iron) tablet 325 mg PO DAILY fluticasone propionate 50 mcg/actuation spray,suspension 2 spray intranasal DAILY PRN Rx Instructions: administer into each nostril hydroxyzine HCl 25 mg tablet 25 mg PO Q6H PRN melatonin 3 mg capsule 3 mg PO HS PRN meloxicam 15 mg tablet 7.5 mg PO BID multivitamin Tablet 1 tab PO DAILY omeprazole 20 mg capsule,delayed release(DR/EC) 20 mg PO DAILY trazodone 50 mg tablet 50 - 100 mg PO HS Discharge Orders: Discharge Order (Routine); Ordered 09/28/21 Ordered By: Pedro Matthew Activity Restrictions/Additional Instructions: If you are feeling ill or developed a fever again, call Dr. Matthew at the hospital during the day, . In the evening call [phone] Álvarez as previously scheduled in follow-up. Activity Level: Activity as Tolerated Discharge Diet: Regular Follow Up Appointments: Randi Umana, PANarinderC [Primary Care Provider] - (Two weeks. Recheck liver blood panel in 2 weeks) Forms: [employer] Info Instructions
--- NOTE | 2021-09-28 11:02 | PC.NURSE ---
discharge.? pt has been pleasant.? abd pain 0-2? she did not want anything for pain.? temp of 98.6 she is eating, drinking and voiding with no problems.. ?no IV antibiotics today per md beasley. SL was d/c intact.? she is up ab sofie.? tele is NSR/ SA?. she wanted to go home. went over discharge packet with pt. went over med no new meds. appt x1, instructions and education. she went over and signed personal belonging sheet. all belongings and paperwork sent home with pt. she got a w/c ride out and she was helped into her car.
--- NOTE | 2021-10-02 15:48 | PC.NURSE ---
Patient called Med/Surg with following update: Fever under 100 and also HR 80's (normally 60-70). Spoke with Dr. Priest, hospitalist regarding these concerns. Per MD, patient was instructed to make a clinic appointment in the next 1-2 days unless she were to develop a third new symptom then she should come to ED to be evaluated. Patient understands she can come to ED at any time if she feels this is necessary. Patient understands instructions, no further questions.
== END 2021-09-28 10:45 | disposition home or self-care (01) | DRG 722 ==
LOC: ED 19:08 → MEDSURG 22:22
PROVIDERS: Admitting Provider Family Medicine; Emergency Provider Family Medicine; PCP Physician Assistant Medical; Visit Provider Family Medicine
DX: R50.82 Postprocedural fever (principal); J95.811 Postprocedural pneumothorax; E11.9 Type 2 diabetes mellitus without complications; I10 Essential (primary) hypertension; G47.00 Insomnia, unspecified; Z90.49 Acquired absence of other specified parts of digestive tract
CPT/HCPCS: 36415; 71260; 74177; 80048; 80053; 80076; 81003; 82803; 82947; 83605; 83690; 84484; 85025; 86140; 87040; 87086; 87426; 87635; 87804; 93005; 93306; 99283; 99284; 99285; A9153; A9270; J1650; J2543; J3370; J7030; J7050; J7120; Q9967; S0106

== ENCOUNTER 2021-10-03 08:37 | Emergency (ER) | payer BC, SELFPAY ==
[2021-10-03] VITALS (8 sets, daily range): BP systolic 115–190; BP diastolic 76–128; PULSE 80–86; RESP 16–22; TEMP 36.4; O2SAT 92–97; BMI 38.4
--- NOTE | 2021-10-03 10:15 | CRLHL7_ITS ---
For Patients: As a result of the Century Cures Act, medical imaging exams and procedure reports are released immediately into your electronic medical record. You may view this report before your referring provider. If you have questions, please contact your health care provider. INDICATION: Pleuritic right-sided chest pain. TECHNIQUE: : Chest 1 views. COMPARISON: September 24, 2021. FINDINGS: Cardiovascular and mediastinum: Heart size and vasculature are normal in caliber and appearance. Lungs and pleural spaces: Lungs are clear. No sign of infiltrate or mass. No sign of pleural effusion. No pneumothorax. Bones and soft tissues: No significant findings. IMPRESSION: No acute findings and no significant changes from the prior exam. Dictated by Kang Dee MD @ 10/03/2021 11:05:48 AM (Electronically Signed)
--- NOTE | 2021-10-03 10:17 | ED_ITS ---
HPI - General Adult General Time Seen by Provider: 10:17 Date Seen: 10/03/21 Chief complaint: Weakness Stated complaint: Fever,nausea,headache Time Seen by Provider: 10/03/21 10:00 Source: patient, RN notes reviewed and other (Dr. Matthew) Mode of arrival: ambulatory Limitations: no limitations History of Present Illness HPI narrative: Patient is a very pleasant 66-year-old female coming in feeling lightheaded, some mild sore throat, fever an episode of vomiting last night. This patient had a cholecystectomy September 23 complicated by a left pneumothorax. That it has resolved without any intervention and did not require chest tube placement. She went home and then subsequently returned with a fever of I believe close to 103, elevated inflammatory markers. Her blood cultures have subsequently been confirmed to be negative. She was hospitalized overnight September 26 and was discharged the next day feeling better. She states since the surgery she has had a little mild sore throat, occasional voice hoarseness, no difficulty swallowing or any pain with swallowing however. Last night she had a temperature back up to 100 again. She vomited last night, did not have any abdominal pain with it. This was atypical for her. The last couple of days she has noted a little right chest discomfort that is pleuritic in nature, hurts with deep breathing. No cough, does endorse maybe feeling winded at times. Her umbilical incision is itching and sometimes feels a little bit more sore than the others but no drainage. She had contacted the hospitalist service appropriately and they recommended re-evaluation. No recent travel, no known ill contacts. Related Data Home Medications Medication Instructions Recorded Confirmed atenolol 25 mg tablet 25 mg PO DAILY 08/19/21 10/03/21 bupropion HCl 150 mg tablet,12 hr 150 mg PO QAM 08/19/21 10/03/21 sustained-release (Wellbutrin SR) cholecalciferol (vitamin D3) 125 125 mcg PO DAILY 08/19/21 10/03/21 mcg (5,000 unit) capsule ferrous sulfate 325 mg (65 mg 325 mg PO DAILY 08/19/21 10/03/21 iron) tablet fluticasone propionate 50 2 spray intranasal DAILY PRN 08/19/21 10/03/21 mcg/actuation nasal spray,suspension hydroxyzine HCl 25 mg tablet 25 mg PO Q6H PRN 08/19/21 10/03/21 melatonin 3 mg capsule 3 mg PO HS PRN 08/19/21 10/03/21 meloxicam 15 mg tablet 7.5 mg PO BID 08/19/21 10/03/21 multivitamin 1 tab PO DAILY 08/19/21 10/03/21 omeprazole 20 mg capsule,delayed 20 mg PO DAILY 08/19/21 10/03/21 release trazodone 50 mg tablet 50 - 100 mg PO HS 08/19/21 10/03/21 Previous Rx's Medication Instructions Recorded hydrocodone 5 mg-acetaminophen 325 1 tab PO Q6H PRN pain #25 tabs 09/23/21 mg tablet Allergies Allergy/AdvReac Type Severity Reaction Status Date / Time lisinopril Allergy Cough Verified 10/03/21 12:39 Sulfa (Sulfonamide Allergy Verified 10/03/21 12:39 Antibiotics) terbinafine Allergy Verified 10/03/21 12:39 Review of Systems Status of ROS: Reports: 10 or more systems reviewed and unremarkable except as noted in History and below [facility] Medical History (Updated 10/03/21 @ 14:20 by Cora Balderrama MD) Acute pain of both shoulders Adenomatous colon polyp Closed head injury De Quervain's disease (tenosynovitis) Displacement of lumbar intervertebral disc without myelopathy Essential (primary) hypertension Gastroesophageal reflux disease with esophagitis Insomnia Iron deficiency anemia, unspecified Major depressive disorder, recurrent, unspecified Non-insulin dependent diabetes mellitus Onychomycosis Pneumonia, unspecified organism Prediabetes Type 2 diabetes mellitus with unspecified complications Urgency of urination Vitamin D deficiency, unspecified Surgical History (Updated 09/28/21 @ 09:12 by Pedro Matthew MD) H/O left knee surgery History of bladder suspension procedure History of cholecystectomy History of umbilical hernia repair Social History (Updated 09/23/21 @ 12:08 by Latanya Álvarez MD) Narrative: Patient denies smoking. She works as a teacher. Highest level of school completed/degree received: Master's degree Smoking Status: Former smoker What tobacco products do you use: cigarettes Years smoked: 10 Smoking quit date/years: >15 years ago Do you use any of these nicotine containing products: None How often do you have a drink containing alcohol: monthly or less Alcohol type: wine How often do you have six or more drinks on one occasion: Never AUDIT-C Alcohol total score: 1 Non-prescribed substance use: denies use Caffeine: Yes (coffee) service: No Exam Const: Vital Signs, click to edit/add: Vital Signs - 24 hr 10/03/21 08:55 10/03/21 11:00 10/03/21 12:35 Temperature 97.6 F Pulse Rate [Left P ulse Oximeter] 86 82 84 Respiratory Rate 16 Blood Pressure [Ri ght Upper Arm] 115/76 163/89 H 173/87 H Pulse Oximetry 94 97 97 Oxygen Delivery Me thod Room Air Room Air Room Air 10/03/21 11:30 10/03/21 12:00 10/03/21 13:00 Temperature Pulse Rate [Left P ulse Oximeter] 80 81 82 Respiratory Rate Blood Pressure [Ri ght Upper Arm] 159/88 H 153/84 H 168/88 H Pulse Oximetry 97 97 96 Oxygen Delivery Me thod Room Air Room Air Room Air Documenting provider has reviewed patient's vital signs: yes Common normals: no apparent distress, oriented x3, no limitations, healthy appearing, alert and well nourished General appearance: cooperative, comfortable and well kempt Nutritional appearance: obese HENMT: Common normals: normocephalic, head/scalp atraumatic, hearing grossly normal bilaterally, TM's normal bilaterally, external nose normal, nasal mucous membranes and turbinates normal, moist oral mucous membranes, oropharynx normal, dentition normal and gingiva normal Head and scalp: normocephalic and atraumatic Nose: external nose normal and nasal mucous membranes and turbinates normal Tympanic membrane: TM's normal bilaterally Eye: Common normals: PERRL, EOMs intact bilaterally, conjunctivae normal and no scleral icterus Conjunctiva: conjunctiva(e) normal Pupil: PERRL Neck & C-Spine: Common normals: full ROM, no lymphadenopathy, supple, no meningeal signs, no JVD and thyroid normal Thyroid: thyroid normal Chest: Common normals: inspection of chest normal and palpation of chest n ormal (Cannot reproduce any discomfort) Resp: Common normals: normal respiratory effort, no retractions, no use of accessory muscles and clear to auscultation bilaterally Auscultation: clear to auscultation bilaterally Cardio: Common normals: no JVD, regular rate, regular rhythm, S1 normal heart sound, S2 normal heart sound, no gallops, no clicks, no murmurs and no rub Rate: regular rate Rhythm: regular rhythm Heart sounds: S1 normal and S2 normal GI: Common normals: Normal to inspection, nondistended, normoactive bowel soun ds present, soft to palpation, non-tender, no hepatosplenomegaly and no masses Palpation: soft and no hepatosplenomegaly Other: The 3 upper ports are quite well healing. The supraumbilical port is scabbed, some mild erythema around it and induration but it is not hot, looks to be more irritation rather than infection. There is no discharge. By appearance is I am not concerned about infection of this wound site. Extremity: Common normals: normal to inspection, full ROM, normal capillary refill, no joint enlargement, no clubbing, cyanosis or edema, no calf tenderness and no pedal edema Neuro: Common normals: oriented x3 Sensorium/orientation: alert Meningeal signs: no meningeal signs Speech: speech normal Gait (neuro): normal gait Psych: Appearance: well kempt Course Course Hospital Course: We will establish an IV, monitor on pulse oximetry. I will get a portable chest x-ray and EKG. We are redoing blood cultures urine cultures and full complement of labs. I have spoken with Dr. Matthew regarding this case. This time do not feel we need any further imaging but we will await our test results and guide therapy accordingly. She is currently hemodynamically stable and afebrile at this time. Reevaluation(s) Reevaluation #1: Reviewed the normal findings on her laboratory evaluation as well as on her imaging. This time will discharge her home for further ongoing outpatient monitoring. I do not find anything that requires further intervention or antibiotics at this time. Time: 14:16 Vital Signs Vital signs: Initial Vital Signs Temperature 97.6 F 10/03/21 08:55 Temperature Source Temporal Artery Scan 10/03/21 08:55 Pulse Rate 86 10/03/21 08:55 Pulse Rhythm 10/03/21 08:55 Respiratory Rate 16 10/03/21 08:55 Blood Pressure 115/76 10/03/21 08:55 Blood Pressure Mean 89 10/03/21 08:55 Blood Pressure Position Sitting 10/03/21 08:55 Pulse Oximetry 94 10/03/21 08:55 Oxygen Delivery Method 10/03/21 08:55 Vital Signs Temperature 97.6 F 10/03/21 08:55 Pulse Rate 86 10/03/21 08:55 Respiratory Rate 16 10/03/21 08:55 Blood Pressure 115/76 10/03/21 08:55 Pulse Oximetry 94 10/03/21 08:55 Oxygen Delivery Method 10/03/21 08:55 Temperature 97.6 F 10/03/21 08:55 Pulse Rate 82 10/03/21 13:00 Respiratory Rate 16 10/03/21 08:55 Blood Pressure 168/88 H 10/03/21 13:00 Pulse Oximetry 96 10/03/21 13:00 Oxygen Delivery Method 10/03/21 13:00 Medical Decision Making Lab Data Lab results reviewed: Yes I reviewed the patient's lab results Labs: Lab Results 10/03/21 10/03/21 10/03/21 Range/Units 10:50 10:50 10:50 WBC 9.93 (4.50-11.00) K/uL RBC 4.66 (4.00-5.20) m/uL Hgb 14.0 (12.0-16.0) gm/dL Hct 41.8 (33.0-51.0) % MCV 90 (80-100) fL MCH 30 (26-34) pg MCHC 34 (32-36) gm/dL RDW Coeff of Arnulfo 12.9 (11.5-15.5) % Plt Count 299 (140-440) K/uL Neut % (Auto) 64.9 (42.0-72.0) % Lymph % (Auto) 24.1 (20-44) % [place] % (Auto) 8.0 (0.0-11.0) % Eos % (Auto) 1.8 (0.0-7.0) % Baso % (Auto) 0.4 (0.0-3.0) % Neut # (Auto) 6.45 (1.7-7.0) K/uL Lymph # (Auto) 2.39 (0.90-2.90) K/uL [place] # (Auto) 0.80 (0.00-0.90) K/UL Eos # (Auto) 0.18 (0.00-0.50) K/uL Baso # (Auto) 0.04 (0.00-0.30) K/uL Abs Immat Gran (auto) 0.08 (0.00-0.30) K/uL ESR (2-20) mm/hr D-Dimer Quant (PE/DVT) (0.00-0.50) ug/ml Sodium 135 (135-149) mmol/L Potassium 4.0 (3.6-5.1) mmol/L Chloride 100 (96-114) mmol/L Carbon Dioxide 28 (20-32) mmol/L BUN 16 (7-30) mg/dL Creatinine 0.7 (0.5-1.5) mg/dL Estimated Creat Clear 47.01 Estimated GFR 97 ml/min Glucose 140 H (60-115) mg/dL Calcium 9.2 (8.4-10.6) mg/dL Total Bilirubin 0.5 (0.1-1.5) mg/dL AST 26 (12-35) U/L ALT 34 (4-35) U/L Alkaline Phosphatase 133 (40-150) U/L Troponin I (0.01-0.04) ng/mL C-Reactive Protein < 0.5 L (0.5-1.0) mg/dL Total Protein 7.5 (6.0-8.3) g/dL Albumin 4.4 (3.3-5.0) g/dL Lipase (23-300) U/L Urine Color (Yellow) Urine Appearance (Clear) Urine pH (5.0-8.5) Ur Specific [place] (1.000-1.030) Urine Protein (Negative) Urine Glucose (UA) (Negative) Urine Ketones (Negative) Urine Blood (Negative) Urine Nitrite (Negative) Urine Bilirubin (Negative) Urine Urobilinogen (0.2-1.0) Ur Leukocyte Esterase (Negative) Urine RBC (0-2) Urine WBC (0-5) Ur Squamous Epith Cells (None-Few) Urine Bacteria (None) SARS-CoV-2 (PCR) Negative SARS-CoV-2 (Negative) Influenza Type A (PCR) Negative PCR FLU A (Negative) Influenza Type B (PCR) Negative PCR FLU B (Negative) RSV (PCR) Negative PCR RSV (Negative) 10/03/21 10/03/21 10/03/21 Range/Units 10:50 10:50 10:50 WBC (4.50-11.00) K/uL RBC (4.00-5.20) m/uL Hgb (12.0-16.0) gm/dL Hct (33.0-51.0) % MCV (80-100) fL MCH (26-34) pg MCHC (32-36) gm/dL RDW Coeff of Arnulfo (11.5-15.5) % Plt Count (140-440) K/uL Neut % (Auto) (42.0-72.0) % Lymph % (Auto) (20-44) % [place] % (Auto) (0.0-11.0) % Eos % (Auto) (0.0-7.0) % Baso % (Auto) (0.0-3.0) % Neut # (Auto) (1.7-7.0) K/uL Lymph # (Auto) (0.90-2.90) K/uL [place] # (Auto) (0.00-0.90) K/UL Eos # (Auto) (0.00-0.50) K/uL Baso # (Auto) (0.00-0.30) K/uL Abs Immat Gran (auto) (0.00-0.30) K/uL ESR 16 (2-20) mm/hr D-Dimer Quant (PE/DVT) 1.34 H (0.00-0.50) ug/ml Sodium (135-149) mmol/L Potassium (3.6-5.1) mmol/L Chloride (96-114) mmol/L Carbon Dioxide (20-32) mmol/L BUN (7-30) mg/dL Creatinine (0.5-1.5) mg/dL Estimated Creat Clear Estimated GFR ml/min Glucose (60-115) mg/dL Calcium (8.4-10.6) mg/dL Total Bilirubin (0.1-1.5) mg/dL AST (12-35) U/L ALT (4-35) U/L Alkaline Phosphatase (40-150) U/L Troponin I (0.01-0.04) ng/mL C-Reactive Protein (0.5-1.0) mg/dL Total Protein (6.0-8.3) g/dL Albumin (3.3-5.0) g/dL Lipase (23-300) U/L Urine Color Yellow (Yellow) Urine Appearance Clear (Clear) Urine pH 5.5 (5.0-8.5) Ur Specific [place] 1.020 (1.000-1.030) Urine Protein Negative (Negative) Urine Glucose (UA) Negative (Negative) Urine Ketones Negative (Negative) Urine Blood Negative (Negative) Urine Nitrite Negative (Negative) Urine Bilirubin Negative (Negative) Urine Urobilinogen 0.2 (0.2-1.0) Ur Leukocyte Esterase Negative (Negative) Urine RBC 0-2 (0-2) Urine WBC 0-2 (0-5) Ur Squamous Epith Cells Few (None-Few) Urine Bacteria Few A (None) SARS-CoV-2 (PCR) (Negative) Influenza Type A (PCR) (Negative) Influenza Type B (PCR) (Negative) RSV (PCR) (Negative) 10/03/21 Range/Units 10:50 WBC (4.50-11.00) K/uL RBC (4.00-5.20) m/uL Hgb (12.0-16.0) gm/dL Hct (33.0-51.0) % MCV (80-100) fL MCH (26-34) pg MCHC (32-36) gm/dL RDW Coeff of Arnulfo (11.5-15.5) % Plt Count (140-440) K/uL Neut % (Auto) (42.0-72.0) % Lymph % (Auto) (20-44) % [place] % (Auto) (0.0-11.0) % Eos % (Auto) (0.0-7.0) % Baso % (Auto) (0.0-3.0) % Neut # (Auto) (1.7-7.0) K/uL Lymph # (Auto) (0.90-2.90) K/uL [place] # (Auto) (0.00-0.90) K/UL Eos # (Auto) (0.00-0.50) K/uL Baso # (Auto) (0.00-0.30) K/uL Abs Immat Gran (auto) (0.00-0.30) K/uL ESR (2-20) mm/hr D-Dimer Quant (PE/DVT) (0.00-0.50) ug/ml Sodium (135-149) mmol/L Potassium (3.6-5.1) mmol/L Chloride (96-114) mmol/L Carbon Dioxide (20-32) mmol/L BUN (7-30) mg/dL Creatinine (0.5-1.5) mg/dL Estimated Creat Clear Estimated GFR ml/min Glucose (60-115) mg/dL Calcium (8.4-10.6) mg/dL Total Bilirubin (0.1-1.5) mg/dL AST (12-35) U/L ALT (4-35) U/L Alkaline Phosphatase (40-150) U/L Troponin I < 0.01 L (0.01-0.04) ng/mL C-Reactive Protein (0.5-1.0) mg/dL Total Protein (6.0-8.3) g/dL Albumin (3.3-5.0) g/dL Lipase 113 (23-300) U/L Urine Color (Yellow) Urine Appearance (Clear) Urine pH (5.0-8.5) Ur Specific [place] (1.000-1.030) Urine Protein (Negative) Urine Glucose (UA) (Negative) Urine Ketones (Negative) Urine Blood (Negative) Urine Nitrite (Negative) Urine Bilirubin (Negative) Urine Urobilinogen (0.2-1.0) Ur Leukocyte Esterase (Negative) Urine RBC (0-2) Urine WBC (0-5) Ur Squamous Epith Cells (None-Few) Urine Bacteria (None) SARS-CoV-2 (PCR) (Negative) Influenza Type A (PCR) (Negative) Influenza Type B (PCR) (Negative) RSV (PCR) (Negative) Imaging Data Chest x-ray: Attestation: I have reviewed the pertinent imaging results. My impression: On my preliminary review of her portable chest x-ray, see no acute pathology. Will await Radiology over-read. Radiologist's impression: Patient: MADDI MARTINES Facility:?[facility] Patient ID:?[id number] Site Patient ID:?[id number]. Site :?[id number] Study:?XRay Chest Portable 1 View-10/03/2021 10:48:12 AM Ordering Physician:Carolyn Shepherd Final Report: INDICATION: Pleuritic right-sided chest pain. TECHNIQUE: : Chest 1 views. COMPARISON: September 24, 2021. FINDINGS: Cardiovascular and mediastinum: Heart size and vasculature are normal in caliber and appearance. Lungs and pleural spaces: Lungs are clear. No sign of infiltrate or mass. No sign of pleural effusion. No pneumothorax. Bones and soft tissues: No significant findings. IMPRESSION: No acute findings and no significant changes from the prior exam. Dictated by Kang Dee MD @ 10/03/2021 11:05:48 AM (Electronic Signature) CT Chest/Ab/Pelvis: Attestation: I have reviewed the pertinent imaging results. Radiologist's impression: Patient: MADDI MARTINES Facility:?[facility] Patient ID:?[id number] Site Patient ID:?[id number]. Site :?[id number] Study:?CT Chest/Abd/Pelvis W/ 95CC ISOVUE-370 PE PROTOCOL-10/03/2021 12:53:56 PM Ordering Physician:Carolyn Shepherd Final Report: INDICATION: Fever, vomiting, cholecystectomy on 09/23. TECHNIQUE: CT chest PE, abdomen, and pelvis acquired with 95 mL of Isovue 370 IV contrast. Coronal and sagittal reformats were generated. COMPARISON: CT of the chest, abdomen, and pelvis from 09/26/2021. FINDINGS: CHEST: Pulmonary arteries: The quality of enhancement of the pulmonary arteries is adequate. No filling defects to suggest pulmonary emboli. No findings of pulmonary artery hypertension. Thyroid: Unremarkable. Thoracic lymph nodes: No enlarged supraclavicular, mediastinal, hilar, or axillary lymph nodes. Mediastinum and esophagus: Unremarkable. Heart and vasculature: Unremarkable. Lungs: Unremarkable. Pleura: Unremarkable. Chest wall: Unremarkable. ABDOMEN AND PELVIS: Liver: Unremarkable. Gallbladder and bile ducts: Surgically absent gallbladder. No inflammatory changes in the gallbladder fossa. Spleen: Unremarkable. Pancreas: Mild diffuse atrophy of the pancreas. No ductal dilation. Adrenal glands: Unremarkable. No nodules. Kidneys and Ureters: Unremarkable. No suspicious masses, stones, or hydronephrosis. Cortical hypodensity in the left kidney is most likely a cyst. Lymph Nodes and Retroperitoneum: Unremarkable. Vasculature: Unremarkable. GI tract: Unremarkable. Normal in caliber. Tiny gas filled duodenal diverticulum, unlikely of clinical significance. Normal appendix. Peritoneum/Abdominal Wall: Stable primarily fat density lesion in the peritoneal cavity along the right hepatic border causes distortion in the liver. Stable fat containing paraumbilical hernia, without herniation of bowel. Pelvic Viscera: Unremarkable. Bladder: Unremarkable. Bones: Unremarkable for age. IMPRESSION: 1. No pulmonary embolism. 2. Changes of cholecystectomy, without complication. 3. 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 4. No significant CT abnormality of the chest, abdomen, or pelvis, or findings to explain the cause of the patient`s symptoms. Please note that all CT scans at this facility use dose modulation, iterative reconstruction, and/or weight-based dosing when appropriate to reduce radiation dose to as low as reasonably achievable. Dictated by Dereje Diaz MD @ 10/03/2021 1:25:30 PM (Electronic Signature) ECG Data Attestation: I personally reviewed and interpreted this ECG as follows: (Sinus rhythm, 81 beats per minute, sinus arrhythmia. No acute ischemic change noted.) Prior ECG tracings: not available for review Critical Care Time Critical Care Time Critical Care Time: No Discharge Plan Discharge Clinical Impression: Lightheadedness, Postoperative fever, Vomiting Patient Disposition: Home, Self-Care Condition: Stable Instructions: Acute Nausea and Vomiting (ED), Lightheadedness (ED) Additional Instructions: Continue with any postoperative restrictions as outlined by your surgeon. Continue to monitor for fever, other symptoms that she had been experiencing in and if they are worsening, please seek re-evaluation. At this time labs and imaging are looking reassuring, there is nothing acute is far as infection nor any blood clot in the lung. Heart enzymes and EKG are reassuring as well. You do need to follow-up if you are having worsening or progressive symptoms however. Prescriptions: No Action hydrocodone-acetaminophen 5-325 mg tablet 1 tab PO Q6H PRN (Reason: pain) Qty: 25 0RF atenolol 25 mg tablet 25 mg PO DAILY bupropion HCl [Wellbutrin SR] 150 mg tablet sustained-release 12 hr 150 mg PO QAM cholecalciferol (vitamin D3) 125 mcg (5,000 unit) capsule 125 mcg PO DAILY ferrous sulfate 325 mg (65 mg iron) tablet 325 mg PO DAILY fluticasone propionate 50 mcg/actuation spray,suspension 2 spray intranasal DAILY PRN Rx Instructions: administer into each nostril hydroxyzine HCl 25 mg tablet 25 mg PO Q6H PRN melatonin 3 mg capsule 3 mg PO HS PRN meloxicam 15 mg tablet 7.5 mg PO BID multivitamin Tablet 1 tab PO DAILY omeprazole 20 mg capsule,delayed release(DR/EC) 20 mg PO DAILY trazodone 50 mg tablet 50 - 100 mg PO HS Follow Up/Referrals: Randi Umana, PAThea [Primary Care Provider] - Stand Alone Forms: [facility] Info Instructions
[2021-10-03 11:17] LABS: Appearance Urine Clear (Clear); Bilirubin Urine Negative (Negative); Blood Urine Negative (Negative); Color Urine Yellow (Yellow); Glucose Urine Negative (Negative); Ketones Urine Negative (Negative); Leukocyte Esterase Urine Negative (Negative); Nitrite Urine Negative (Negative); Protein Urine Negative (Negative); Urobilinogen Urine 0.2 (0.2-1.0); pH Urine 5.5 (5.0-8.5)
[2021-10-03 11:21] LABS: Albumin* 4.4 g/dL (3.3-5.0); Chloride* 100 mmol/L (96-114); D Dimer Quantitative* 1.34 ug/ml (0.00-0.50); Sodium* 135 mmol/L (135-149)
[2021-10-03 11:23] LABS: Creatinine* 0.7 mg/dL (0.5-1.5); Est. Creatinine Clearance* 47.01; Estimated Glomerular Filt Rate 97 ml/min; Lipase* 113 U/L (23-300)
[2021-10-03 11:24] LABS: Alanine Aminotransferase* 34 U/L (4-35); Alkaline Phosphatase* 133 U/L (40-150); Aspartate Amino Transferase* 26 U/L (12-35); Bilirubin Total* 0.5 mg/dL (0.1-1.5); Blood Urea Nitrogen* 16 mg/dL (7-30); Carbon Dioxide* 28 mmol/L (20-32); Glucose* 140 mg/dL (60-115); Total Protein* 7.5 g/dL (6.0-8.3)
[2021-10-03 11:25] LABS: Calcium* 9.2 mg/dL (8.4-10.6)
[2021-10-03 11:27] LABS: Basophils Absolute Auto 0.04 K/uL (0.00-0.30); Basophils Percent Auto 0.4 % (0.0-3.0); Eosinophils Absolute Auto 0.18 K/uL (0.00-0.50); Eosinophils Percent Auto 1.8 % (0.0-7.0); Hematocrit 41.8 % (33.0-51.0); Immature Granulocytes Abs Auto 0.08 K/uL (0.00-0.30); Lymphocytes Absolute Auto 2.39 K/uL (0.90-2.90); Lymphocytes Percent Auto 24.1 % (20-44); Mean Corpuscular HGB Conc 34 gm/dL (32-36); Mean Corpuscular Hemoglobin 30 pg (26-34); Mean Corpuscular Volume 90 fL (80-100); Neutrophils Absolute Auto 6.45 K/uL (1.7-7.0); Neutrophils Percent Auto 64.9 % (42.0-72.0); Platelet Count* 299 K/uL (140-440); RDW Coefficient of Variation % 12.9 % (11.5-15.5); Red Blood Count 4.66 m/uL (4.00-5.20); White Blood Count* 9.93 K/uL (4.50-11.00)
[2021-10-03 11:31] LABS: Slide Review Reflex No
[2021-10-03 11:37] LABS: RBC Urine 0-2 (0-2); WBC Urine 0-2 (0-5)
[2021-10-03 11:38] LABS: Bacteria Urine Few; Squamous Epithelial Cell Urine Few (None-Few)
[2021-10-03 11:41] LABS: PCR FLU A Negative PCR FLU A (Negative); PCR FLU B Negative PCR FLU B (Negative); PCR RSV Negative PCR RSV (Negative)
[2021-10-03 11:43] LABS: Troponin I* < 0.01 ng/mL (0.01-0.04)
[2021-10-03 11:53] LABS: C Reactive Protein* < 0.5 mg/dL (0.5-1.0); SARS PCR* Negative SARS-CoV-2 (Negative)
[2021-10-03 12:11] LABS: Erythrocyte SedimentationRate* 16 mm/hr (2-20)
--- NOTE | 2021-10-03 12:12 | CRLHL7_ITS ---
For Patients: As a result of the Century Cures Act, medical imaging exams and procedure reports are released immediately into your electronic medical record. You may view this report before your referring provider. If you have questions, please contact your health care provider. INDICATION: Fever, vomiting, cholecystectomy on 09/23. TECHNIQUE: CT chest PE, abdomen, and pelvis acquired with 95 mL of Isovue 370 IV contrast. Coronal and sagittal reformats were generated. COMPARISON: CT of the chest, abdomen, and pelvis from 09/26/2021. FINDINGS: CHEST: Pulmonary arteries: The quality of enhancement of the pulmonary arteries is adequate. No filling defects to suggest pulmonary emboli. No findings of pulmonary artery hypertension. Thyroid: Unremarkable. Thoracic lymph nodes: No enlarged supraclavicular, mediastinal, hilar, or axillary lymph nodes. Mediastinum and esophagus: Unremarkable. Heart and vasculature: Unremarkable. Lungs: Unremarkable. Pleura: Unremarkable. Chest wall: Unremarkable. ABDOMEN AND PELVIS: Liver: Unremarkable. Gallbladder and bile ducts: Surgically absent gallbladder. No inflammatory changes in the gallbladder fossa. Spleen: Unremarkable. Pancreas: Mild diffuse atrophy of the pancreas. No ductal dilation. Adrenal glands: Unremarkable. No nodules. Kidneys and Ureters: Unremarkable. No suspicious masses, stones, or hydronephrosis. Cortical hypodensity in the left kidney is most likely a cyst. Lymph Nodes and Retroperitoneum: Unremarkable. Vasculature: Unremarkable. GI tract: Unremarkable. Normal in caliber. Tiny gas filled duodenal diverticulum, unlikely of clinical significance. Normal appendix. Peritoneum/Abdominal Wall: Stable primarily fat density lesion in the peritoneal cavity along the right hepatic border causes distortion in the liver. Stable fat containing paraumbilical hernia, without herniation of bowel. Pelvic Viscera: Unremarkable. Bladder: Unremarkable. Bones: Unremarkable for age. IMPRESSION: 1. No pulmonary embolism. 2. Changes of cholecystectomy, without complication. 3. 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 4. No significant CT abnormality of the chest, abdomen, or pelvis, or findings to explain the cause of the patient`s symptoms. Please note that all CT scans at this facility use dose modulation, iterative reconstruction, and/or weight-based dosing when appropriate to reduce radiation dose to as low as reasonably achievable. Dictated by Dereje Diaz MD @ 10/03/2021 1:25:30 PM (Electronically Signed)
--- NOTE | 2021-10-03 14:55 | ED.NURSE ---
did want to go home. dr bill was in to explain plan and anwered questions about her elevated bp and pulse. very loving and attentive.
== END 2021-10-03 14:35 | disposition home or self-care (01) ==
PROVIDERS: Emergency Provider Family Medicine; PCP Physician Assistant Medical
DX: R11.10 Vomiting, unspecified (principal); R50.82 Postprocedural fever
CPT/HCPCS: 36415; 71045; 71260; 74177; 80053; 81001; 83690; 84484; 85025; 85379; 85651; 86140; 87040; 87086; 87502; 87634; 87635; 93005; 99284; 99285; Q9967

== ENCOUNTER 2022-03-05 17:35 | Emergency (ER) | payer BC, SELFPAY ==
--- NOTE | 2022-03-05 17:54 | CRLHL7_ITS ---
For Patients: As a result of the Century Cures Act, medical imaging exams and procedure reports are released immediately into your electronic medical record. You may view this report before your referring provider. If you have questions, please contact your health care provider. Indication: Trauma. Technique: Left wrist, 3 views. Comparison: None. Findings/Impression: Bones: Acute minimally displaced comminuted intra-articular fracture of the distal radius. Joint spaces: Associated joint effusion. Soft tissues: Associated soft tissue swelling. Dictated by Benny Mitchell MD @ 03/05/2022 6:35:24 PM (Electronically Signed)
[2022-03-05 17:55] VITALS: BP 181/93; PULSE 91; RESP 16; TEMP 37.3; O2SAT 94; BMI 37.8
--- NOTE | 2022-03-05 18:01 | ED_ITS ---
HPI - General Adult General Time Seen by Provider: 18:02 Date Seen: 03/05/22 Chief complaint: Extremity Pain/Injury, Upper Stated complaint: Left Wrist Injury - Fall Time Seen by Provider: 03/05/22 17:43 Source: patient Mode of arrival: ambulatory Limitations: physical limitation History of Present Illness HPI narrative: Patient is a 66-year-old female who slipped on ice fell on her back, landed on her left wrist and injured her left wrist it is deformed and she heard a sound. The pain is been significant in her left wrist, no open wounds, limited range of motion. Swelling noted. No head neck back pelvic or lower extremity symptoms. No elbow or upper extremity symptoms on the left. She is here with a friend who brought her Related Data Home Medications Medication Instructions Recorded Confirmed atenolol 25 mg tablet 25 mg PO DAILY 08/19/21 03/05/22 bupropion HCl 150 mg tablet,12 hr 150 mg PO QAM 08/19/21 03/05/22 sustained-release (Wellbutrin SR) cholecalciferol (vitamin D3) 125 125 mcg PO DAILY 08/19/21 03/05/22 mcg (5,000 unit) capsule ferrous sulfate 325 mg (65 mg 325 mg PO DAILY 08/19/21 03/05/22 iron) tablet fluticasone propionate 50 2 spray intranasal DAILY PRN 08/19/21 03/05/22 mcg/actuation nasal spray,suspension hydroxyzine HCl 25 mg tablet 25 mg PO Q6H PRN 08/19/21 03/05/22 melatonin 3 mg capsule 3 mg PO HS PRN 08/19/21 03/05/22 meloxicam 15 mg tablet 7.5 mg PO BID 08/19/21 03/05/22 multivitamin 1 tab PO DAILY 08/19/21 03/05/22 omeprazole 20 mg capsule,delayed 20 mg PO DAILY 08/19/21 03/05/22 release trazodone 50 mg tablet 50 - 100 mg PO HS 08/19/21 03/05/22 clindamycin HCl 150 mg capsule mg 03/05/22 Previous Rx's Medication Instructions Recorded hydrocodone 5 mg-acetaminophen 325 1 tab PO Q6H PRN pain #14 tabs 03/05/22 mg tablet Allergies Allergy/AdvReac Type Severity Reaction Status Date / Time lisinopril Allergy Cough Verified 03/05/22 18:04 Sulfa (Sulfonamide Allergy Verified 03/05/22 18:04 Antibiotics) terbinafine Allergy Verified 03/05/22 18:04 Review of Systems Status of ROS: Reports: 6 or more systems reviewed and unremarkable except as noted in History and below [facility] Medical History Acute pain of both shoulders Adenomatous colon polyp Closed head injury De Quervain's disease (tenosynovitis) Displacement of lumbar intervertebral disc without myelopathy Essential (primary) hypertension Gastroesophageal reflux disease with esophagitis Insomnia Iron deficiency anemia, unspecified Major depressive disorder, recurrent, unspecified Non-insulin dependent diabetes mellitus Onychomycosis Pneumonia, unspecified organism Prediabetes Type 2 diabetes mellitus with unspecified complications Urgency of urination Vitamin D deficiency, unspecified Surgical History H/O left knee surgery History of bladder suspension procedure History of cholecystectomy History of umbilical hernia repair Social History Narrative: Patient denies smoking. She works as a teacher. Highest level of school completed/degree received: Master's degree Smoking Status: Former smoker What tobacco products do you use: cigarettes Years smoked: 10 Smoking quit date/years: >15 years ago Do you use any of these nicotine containing products: None How often do you have a drink containing alcohol: monthly or less Alcohol type: wine How often do you have six or more drinks on one occasion: Never AUDIT-C Alcohol total score: 1 Non-prescribed substance use: denies use Caffeine: Yes (coffee) service: No Exam Narrative: Exam Narrative: Objective: Vital signs unremarkable other than slightly elevated systolic pressure In mild distress and discomfort but very pleasant alert orient x3 only complains of left wrist pain HEENT is unremarkable neck supple nontender back exam unremarkable chest shoulders elbows unremarkable bilaterally abdomen pelvis lower extremities show no tenderness she is ambulatory without difficulty Left wrist shows gross deformity tenderness especially over the distal radius. No open wounds noted distal CMS intact, range of motion limited secondary to pain and swelling Const: Vital Signs, click to edit/add: Vital Signs - 24 hr 03/05/22 17:55 Temperature 99.1 F Pulse Rate [Right Pulse Oximeter] 91 Respiratory Rate 16 Blood Pressure [Ri ght Upper Arm] 181/93 H Pulse Oximetry 94 Oxygen Delivery Me thod Room Air Course Vital Signs Vital signs: Initial Vital Signs Temperature 99.1 F 03/05/22 17:55 Temperature Source Temporal Artery Scan 03/05/22 17:55 Pulse Rate 91 03/05/22 17:55 Respiratory Rate 16 03/05/22 17:55 Blood Pressure 181/93 H 03/05/22 17:55 Blood Pressure Mean 122 03/05/22 17:55 Pulse Oximetry 94 03/05/22 17:55 Oxygen Delivery Method 03/05/22 17:55 Vital Signs Temperature 99.1 F 03/05/22 17:55 Pulse Rate 91 03/05/22 17:55 Respiratory Rate 16 03/05/22 17:55 Blood Pressure 181/93 H 03/05/22 17:55 Pulse Oximetry 94 03/05/22 17:55 Oxygen Delivery Method 03/05/22 17:55 Temperature 99.1 F 03/05/22 17:55 Pulse Rate 91 03/05/22 17:55 Respiratory Rate 16 03/05/22 17:55 Blood Pressure 181/93 H 03/05/22 17:55 Pulse Oximetry 94 03/05/22 17:55 Oxygen Delivery Method 03/05/22 17:55 Medical Decision Making MDM Narrative Medical decision making narrative: Patient has a fall on the left wrist with an obvious deformity likely a Colles type fracture. The patient will get an x-ray, pain control after x-ray is completed and disposition arrived at. Likely will need splinting and orthopedic follow-up. Will review the x-rays returns. Okay addendum: The patient has a distal radial fracture intra kit particular it appears but nondisplaced. A procedure was done the put a short thumb spica splint on the patient should get an arm sling. She is given Trenton 5 mg orally. The patient will need to see Ortho in 3-5 days, arm sling, splint precautions, elevation, ibuprofen could be used as well as the Trenton. Will send some Trenton home with her as well. Recheck sooner than ortho follow-up as needed Discharge Plan Discharge Clinical Impression: Fracture of left wrist Patient Disposition: Home w/ Parent or Adult Condition: Improved Additional Instructions: Please set up an orthopedic appointment for 3-5 days, Advil as needed, Trenton as needed cautioned about sedative effect of the Trenton. Arm sling. If the splint is too tight return to ER ER for re-evaluation. Elevate at night, may put a towel on top of splint and then put ice bag on top of the tile. You have a follow-up appt @ the [facility] ([place] location) 03/10/2022 @ 1:10 PM if you cannot make this appt, please call [phone] to change/cancel. Activity Level: Light activity Discharge Diet: Regular Prescriptions: New hydrocodone-acetaminophen 5-325 mg tablet 1 tab PO Q6H PRN (Reason: pain) Qty: 14 0RF No Action clindamycin HCl 150 mg capsule Label Comments: BREAK OPEN 1 CAPSULE INTO 1 CUP OF WATER FOR SINUS RINSE DAILY. atenolol 25 mg tablet 25 mg PO DAILY bupropion HCl [Wellbutrin SR] 150 mg tablet sustained-release 12 hr 150 mg PO QAM cholecalciferol (vitamin D3) 125 mcg (5,000 unit) capsule 125 mcg PO DAILY ferrous sulfate 325 mg (65 mg iron) tablet 325 mg PO DAILY fluticasone propionate 50 mcg/actuation spray,suspension 2 spray intranasal DAILY PRN Rx Instructions: administer into each nostril hydroxyzine HCl 25 mg tablet 25 mg PO Q6H PRN melatonin 3 mg capsule 3 mg PO HS PRN meloxicam 15 mg tablet 7.5 mg PO BID multivitamin Tablet 1 tab PO DAILY omeprazole 20 mg capsule,delayed release(DR/EC) 20 mg PO DAILY trazodone 50 mg tablet 50 - 100 mg PO HS Follow Up/Referrals: Randi Umana PA-C [Primary Care Provider] - Stand Alone Forms: [employer] Info Instructions
[2022-03-05] MEDS: HYDROCODONE-ACETAMIN 5-325 MG 1 TAB PO (18:21)
== END 2022-03-05 19:02 | disposition home or self-care (01) ==
LOC: ED 18:39
PROVIDERS: Emergency Provider Family Medicine; PCP Physician Assistant Medical
DX: S52.572A Other intraarticular fracture of lower end of left radius, initial encounter for closed fracture (principal); W00.9XXA Unspecified fall due to ice and snow, initial encounter
CPT/HCPCS: 29125; 73110; 99284; A9270

== ENCOUNTER 2022-06-18 16:00 | Outpatient (RCR) | payer BC, SELFPAY | END 2022-06-19 07:19 | disposition home or self-care (01) | PROVIDERS: PCP Physician Assistant Medical; Visit Provider Orthopaedic Surgery | DX: S62.102A Fracture of unspecified carpal bone, left wrist, initial encounter for closed fracture (principal); Z51.89 Encounter for other specified aftercare | CPT/HCPCS: 97110; 97140; 97165; X5282 ==

== ENCOUNTER 2022-11-10 07:52 | Outpatient (CLI) | payer BC, SELFPAY ==
--- NOTE | 2022-11-10 08:30 | W.ANESCHARGE ---
Anesthesia Charges Start Date/Time Anesthesia Start Date: 11/10/22 Anesthesia Start Time: 08:45 Stop Date/Time Anesthesia Stop Date: 11/10/22 Anesthesia Stop Time: 09:07
--- NOTE | 2022-11-10 09:07 | W.ANESCHARGE ---
Anesthesia Charges Start Date/Time Anesthesia Start Date: 11/10/22 Anesthesia Start Time: 08:45 Stop Date/Time Anesthesia Stop Date: 11/10/22 Anesthesia Stop Time: 09:07
== END 2022-11-10 07:53 | disposition home or self-care (01) ==
LOC: OP CLINIC 07:52
PROVIDERS: PCP Physician Assistant Medical; Visit Provider Internal Medicine Gastroenterology
DX: Z12.11 Encounter for screening for malignant neoplasm of colon (principal); K57.30 Diverticulosis of large intestine without perforation or abscess without bleeding; Z86.010 Personal history of colon polyps
CPT/HCPCS: 45378; 811; J2704

== ENCOUNTER 2023-02-02 18:32 | Emergency (ER) | payer BC, SELFPAY ==
[2023-02-02 18:37] VITALS: BP 146/83; PULSE 75; RESP 18; TEMP 36.4; O2SAT 97; BMI 37.2
--- NOTE | 2023-02-03 00:17 | ED_ITS ---
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 She is generally healthy. She initially developed a rash affecting her upper cheeks and lower eyelids several weeks ago. The rash actually then self resolved. It came back again a couple of weeks ago. She does not know what triggered the rash. She is on medications for insomnia and her other medical conditions but has been stable in her med regimen with noted new med changes or new doses for a long time. She has no other new food, soaps, detergents, makeup, pets, or any other known new allergen exposure. Because of the rash on her cheeks and lower lids she saw her primary care provider last week. They were concerned that it might be a malar rash so did a workup for possible autoimmune diseases which she says was normal. She is able to show me on her my chart that she had a negative JESSY, negative rheumatoid of fracture, negative double-stranded DNA, low sed rate, and minimally elevated CRP. She has been referred by her primary care provider to dermatology and has an appointment in 4 days, on Thursday. Throughout the day today her rash has gradually gotten worse and spread from being on her cheeks and lower lids now to being on her cheeks and lower lids as well as her forehead, lower cheeks, chin, and a little bit on her upper neck. She is not having any other rash. No other hives. No swelling in her throat. No trouble breathing. No abdominal pain. No nausea or vomiting. No fever. She does not know what made her rash worse. She has been trying topical creams like he Eucerin cream and Aquaphor, but they are not helpful. She was told she should not put topical steroids on her face because of the thin skin. Related Data Home Medications Medication Instructions Recorded Confirmed atenolol 25 mg tablet 25 mg PO DAILY 08/19/21 02/02/23 bupropion HCl 150 mg tablet,12 hr 150 mg PO QAM 08/19/21 02/02/23 sustained-release (Wellbutrin SR) cholecalciferol (vitamin D3) 125 125 mcg PO DAILY 08/19/21 02/02/23 mcg (5,000 unit) capsule ferrous sulfate 325 mg (65 mg 325 mg PO DAILY 08/19/21 04/16/22 iron) tablet fluticasone propionate 50 2 spray intranasal DAILY PRN 08/19/21 04/16/22 mcg/actuation nasal spray,suspension hydroxyzine HCl 25 mg tablet 25 mg PO Q6H PRN 08/19/21 02/02/23 melatonin 3 mg capsule 3 mg PO HS PRN 08/19/21 02/02/23 meloxicam 15 mg tablet 7.5 mg PO BID 08/19/21 02/02/23 multivitamin 1 tab PO DAILY 08/19/21 02/02/23 omeprazole 20 mg capsule,delayed 20 mg PO DAILY 08/19/21 04/16/22 release trazodone 50 mg tablet 50 - 100 mg PO HS 08/19/21 02/02/23 clindamycin HCl 150 mg capsule mg 03/05/22 04/16/22 Previous Rx's Medication Instructions Recorded hydrocodone 5 mg-acetaminophen 325 1 tab PO Q6H PRN pain #14 tabs 03/05/22 mg tablet Allergies Allergy/AdvReac Type Severity Reaction Status Date / Time lisinopril Allergy Cough Verified 04/16/22 08:26 Sulfa (Sulfonamide Allergy Verified 04/16/22 08:26 Antibiotics) terbinafine Allergy Verified 04/16/22 08:26 [facility] Medical History Acute pain of both shoulders Adenomatous colon polyp Closed head injury De Quervain's disease (tenosynovitis) Displacement of lumbar intervertebral disc without myelopathy Essential (primary) hypertension Gastroesophageal reflux disease with esophagitis Insomnia Iron deficiency anemia, unspecified Major depressive disorder, recurrent, unspecified Non-insulin dependent diabetes mellitus Onychomycosis Pneumonia, unspecified organism Prediabetes Type 2 diabetes mellitus with unspecified complications Urgency of urination Vitamin D deficiency, unspecified Surgical History H/O left knee surgery (02/04/12) History of bladder suspension procedure History of cholecystectomy History of umbilical hernia repair Social History (Reviewed 03/19/22 @ 16:39 by Pilar Ramos ~ [facility], [facility]) Narrative: Patient denies smoking. She works as a teacher. Highest level of school completed/degree received: Master's degree Smoking Status: Former smoker What tobacco products do you use: cigarettes Years smoked: 10 Smoking quit date/years: >15 years ago Do you use any of these nicotine containing products: None Second hand tobacco smoke exposure: No How often do you have a drink containing alcohol: monthly or less Alcohol type: wine How many standard drinks containing alcohol do you have on a typical day: 1 or 2 How often do you have six or more drinks on one occasion: Never AUDIT-C Alcohol total score: 1 Non-prescribed substance use: denies use Caffeine: Yes (coffee) service: No Exam Narrative: Exam Narrative: Constitutional: Appears well-developed and well-nourished. Alert. Conversant. Non toxic. HENT: Head: Atraumatic. Nose: Nose normal. Mouth/Throat: Oral mucosa is clear and moist. no trismus. Pharynx normal. Tonsils symmetric. No tonsillar enlargement, erythema, or exudate. Eyes: Conjunctivae normal. EOM normal. Pupils equal, round, and reactive to light. No scleral icterus. Neck: Normal range of motion. Neck supple. No tracheal deviation present. Cardiovascular: Normal rate, regular rhythm. No gallop. No friction rub. No murmur heard. Symmetric radial artery pulses Pulmonary/Chest: Effort normal. No stridor. No respiratory distress. No wheezes. No rales. No rhonchi . No tenderness. Abdominal: Soft. Bowel sounds normal. No distension. No mass. No tenderness. No rebound. No guarding. Musculoskeletal: RUE: Normal range of motion. No tenderness. No deformity LUE: Normal range of motion. No tenderness. No deformity RLE: Normal range of motion. No edema. No tenderness. No deformity LLE: Normal range of motion. No edema. No tenderness. No deformity Lymph: No cervical adenopathy. Neurological: Alert and oriented to person, place, and time. Normal strength. CN II-VII intact. No sensory deficit. GCS eye subscore is 4. GCS verbal subscore is 5. GCS motor subscore is 6. Normal coordination Skin: The patient has a pain killer erythematous rash affecting the skin of her face including her forehead, upper eyelids, lower eyelids, cheeks, chin. The skin of her nose is spared. She also has some blotchy extension of the rash onto the skin under her chin on on her anterior upper neck. She also has a couple small lesions at the hairline on the back of her scalp at the nape of her neck. No other rash or hives. No pallor. Normal capillary refill. Psychiatric: Normal mood. Normal affect. Const: Vital Signs, click to edit/add: Vital Signs - 24 hr 02/02/23 18:37 Temperature 97.6 F Pulse Rate [Pulse Oximeter] 75 Respiratory Rate 18 Blood Pressure [Ri ght Upper Arm] 146/83 H Pulse Oximetry 97 Oxygen Delivery Me thod Room Air Course Vital Signs Vital signs: Initial Vital Signs Temperature 97.6 F 02/02/23 18:37 Temperature Source Temporal Artery Scan 02/02/23 18:37 Pulse Rate 75 02/02/23 18:37 Respiratory Rate 18 02/02/23 18:37 Blood Pressure 146/83 H 02/02/23 18:37 Blood Pressure Mean 104 02/02/23 18:37 Blood Pressure Position Sitting 02/02/23 18:37 Pulse Oximetry 97 02/02/23 18:37 Oxygen Delivery Method Room Air 02/02/23 18:37 Vital Signs Temperature 97.6 F 02/02/23 18:37 Pulse Rate 75 02/02/23 18:37 Respiratory Rate 18 02/02/23 18:37 Blood Pressure 146/83 H 02/02/23 18:37 Pulse Oximetry 97 02/02/23 18:37 Oxygen Delivery Method Room Air 02/02/23 18:37 Temperature 97.6 F 02/02/23 18:37 Pulse Rate 75 02/02/23 18:37 Respiratory Rate 18 02/02/23 18:37 Blood Pressure 146/83 H 02/02/23 18:37 Pulse Oximetry 97 02/02/23 18:37 Oxygen Delivery Method Room Air 02/02/23 18:37 Medical Decision Making MDM Narrative Medical decision making narrative: This patient presents for evaluation of a burning red rash affecting her face. Differential is broad including anaphylaxis or allergic reaction, contact dermatitis, photosensitive rash, erysipelas or infection (but timing and distribution do not fit with infection), superior vena cava syndrome (but there is not actually facial swelling, just redness of the skin), autoimmune disease, among others. History is most consistent with a probable contact dermatitis giving the well-circumscribed and localized nature of the rash. However no clear new exposure to cause a contact dermatitis. No airway involvement, bronchospasm, GI symptoms, hypotension, or other sign of anaphylaxis. Discussed options for treatment. We will go ahead with antihistamines as a 1st line to help treat her symptomatically. She may benefit from being on steroids. However this could cause side effects or such as insomnia, agitation, bloating, weight gain. Additionally being on steroids could potentially cloud diagnostic workup for her upcoming dermatology appointment. She is going to try treating with antihistamines 1st and will start the steroids tomorrow morning if she is not improving by then. At this point in the she is to be admitted for observation. No signs in a evolving airway compromise. She is not having any difficulty with breathing and no oral or pharyngeal swelling, would not admit at this time for anaphylaxis. There is no signs of anaphylactic shock. Precautions for return to the ER reviewed. Discharge Plan Discharge Clinical Impression: Dermatitis Patient Disposition: Home, Self-Care Condition: Stable Instructions: Dermatitis (ED) Additional Instructions: As we discussed, please come back to the ER right away if you have spreading rash, trouble breathing, hoarse voice or trouble swallowing, dizziness or lightheadedness, low broad pressure, or any concerns. Use antihistamines like Benadryl to help with the itching and burning. You can take Benadryl 1 tablet every 6 hours as needed. Add prednisone tomorrow morning if the rash is not getting better. Please follow-up with your endoscopic technician by Thursday. Remember, if you get worse, you can come back to the ER any time. Prescriptions: No Action clindamycin HCl 150 mg capsule Patient Comments: BREAK OPEN 1 CAPSULE INTO 1 CUP OF WATER FOR SINUS RINSE DAILY. hydrocodone-acetaminophen 5-325 mg tablet 1 tab PO Q6H PRN (Reason: pain) Qty: 14 0RF atenolol 25 mg tablet 25 mg PO DAILY bupropion HCl [Wellbutrin SR] 150 mg tablet sustained-release 12 hr 150 mg PO QAM cholecalciferol (vitamin D3) 125 mcg (5,000 unit) capsule 125 mcg PO DAILY ferrous sulfate 325 mg (65 mg iron) tablet 325 mg PO DAILY fluticasone propionate 50 mcg/actuation spray,suspension 2 spray intranasal DAILY PRN Rx Instructions: administer into each nostril hydroxyzine HCl 25 mg tablet 25 mg PO Q6H PRN melatonin 3 mg capsule 3 mg PO HS PRN meloxicam 15 mg tablet 7.5 mg PO BID multivitamin Tablet 1 tab PO DAILY omeprazole 20 mg capsule,delayed release(DR/EC) 20 mg PO DAILY trazodone 50 mg tablet 50 - 100 mg PO HS Follow Up/Referrals: Randi Umana PANarinderC [Primary Care Provider] - Stand Alone Forms: [facility] Info Instructions
== END 2023-02-02 20:21 | disposition home or self-care (01) ==
LOC: ED 20:19
PROVIDERS: Emergency Provider Emergency Medicine; PCP Physician Assistant Medical
DX: L30.9 Dermatitis, unspecified (principal)
CPT/HCPCS: 99283